=== PATIENT | male | born 1940 | race Caucasian/White ===

== ENCOUNTER 2018-11-25 16:48 | Inpatient (IN) ==
--- NOTE | 2018-11-25 17:29 | Diag Imaging Result Doc PS360 ---
EXAM: CT HEAD W/O CONTRAST 11/25/2018 HISTORY: DISORIENTATION TECHNIQUE: This exam was performed using automated exposure control, adjustment of mA or kV according to patient size, and/or use of iterative reconstruction technique. COMMENT: There is mild generalized cerebral atrophy. There is enlargement of the third and lateral ventricles which appears to be somewhat out of proportion to the degree of atrophy. Compared to the previous study of 03/05/2013 the lateral ventricles have increased in size. The atrium of the right lateral ventricle has increased from 25 to 31 mm and the transverse dimension of the anterior horns in aggregate has increased from 4.6 to 4.8 cm. The transverse dimension of the third ventricle has increased from under 13 to over 14 mm. There are some patchy periventricular white matter lucencies. No evidence of bleed or abnormal extra-axial fluid collection is present. The calvarium is intact. The visualized paranasal sinuses are clear. IMPRESSION: Mild chronic microvascular white matter changes. The possibility of normal pressure hydrocephalus cannot be excluded. Electronically signed by Presley Lakhani 11/25/2018 5:26 PM
--- NOTE | 2018-11-25 17:33 | PROVIDER DOCUMENTATION ---
HPI-Neurological Disorder - General Chief Complaint: Stroke-Like Symptoms Stated Complaint: DR LAIRD SENT FOR MRI Time Seen by Provider: 11/25/18 16:55 Allergies/Adverse Reactions: Patient Allergies Allergy/AdvReac Type Severity Reaction Status Date / Time morphine Allergy SHORTNESS Verified 12/01/14 10:22 OF BREATH Home Medications: Home Medication List Medication Instructions Recorded Confirmed Last Taken Type LISINOpril [Prinivil] 5 mg PO DAILY 06/06/14 12/01/14 12/01/14 08:00 History Omeprazole [Prilosec] 20 mg PO DAILY@0700 06/06/14 12/01/14 12/01/14 08:00 History Simvastatin [Zocor] 40 mg PO DAILY 06/06/14 12/01/14 11/30/14 20:00 History Tamsulosin [Flomax] 0.4 mg PO DAILY 06/06/14 12/01/14 12/01/14 08:00 History Clopidogrel Bisulfate [Plavix] 75 mg PO DAILY 10/10/14 12/01/14 12/01/14 08:00 History Lorazepam 1 mg PO HS 10/10/14 12/01/14 11/30/14 20:00 History Metoprolol Tartrate 25 mg PO DAILY 10/10/14 12/01/14 12/01/14 08:00 History Nitroglycerin [Nitrostat] 0.4 mg SL PRN PRN 10/10/14 12/01/14 12/01/14 08:00 History Potassium Chloride E.r. [Klor-Con] 10 meq PO DAILY 10/10/14 12/01/14 12/01/14 08:00 History Venlafaxine HCl [Effexor] 50 mg PO BID 10/10/14 12/01/14 12/01/14 08:00 History - History of Present Illness-Neuro Nature of Presenting Problem: Patient is a 78 yowm who complains of expressive aphasia x 1 week that worsened on Friday. He is present with his [id number] who states she alpa noticed the aphasia last Friday. Pt also c/o generalized weakness and intermittent dizziness "for a while". He told the triage nurse that he was having suicidal thoughts, but would not answer questions regarding SI when I asked him. He is a&ox4 and non-toxic in appearance. Review of Systems - Adult - REVIEW OF SYSTEMS - ADULT Constitutional: reports: no symptoms reported Eyes: reports: no symptoms reported Ears, Nose, Mouth & Throat: reports: no symptoms reported Cardiovascular: reports: no symptoms reported Respiratory: reports: no symptoms reported Gastrointestinal: reports: no symptoms reported Genitourinary: reports: no symptoms reported Musculoskeletal: reports: no symptoms reported Integumentary: reports: no symptoms reported Neurological: reports: see HPI, slurred speech (expressive aphasia). denies: numbness, paresthesia, syncope Psychiatric: reports: see HPI Endocrine: reports: no symptoms reported Hematologic/Lymphatic: reports: no symptoms reported Allergic/Immunologic: reports: no symptoms reported All Other Systems: Reviewed and Negative Past History - Adult - PAST MEDICAL HISTORY-ADULT Review of Records: reports: Nursing Assessment Review, Medications Reviewed, Social history reviewed & non-contributory. Major Childhood Illnesses: reports: denies history Cardiovascular: reports: CAD, HTN, hyperlipidemia Respiratory: reports: denies history Gastrointestinal: reports: GERD Obstetrical/Gynecological: reports: denies history Genitourinary: reports: kidney stones Musculoskeletal: reports: denies history Neurological: reports: denies history Endocrine/Immune: reports: denies history Other Conditions: reports: denies history - PRIOR SURGERIES/PROCEDURES Surgical/Procedure History: reports: cardiac stent, hernia repair, orthopedic (extremity) (shoulder) - FAMILY HISTORY Family History: reviewed, not pertinent - SOCIAL HISTORY Smoking: non-smoker Physical Exam- Neurological - Physical Exam-Neuro Initial Vital Signs Reviewed: Yes General Appearance: alert, no apparent distress. 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 negative: abnormal eye position, facial asymmetry, facial droop, facial paresthesias, facial weakness, gaze palsy Coordination/Gait: normal finger to nose Motor/Sensory: no pronator drift Neurologic: aphasia. negative: facial droop, focal weakness, motor weakness, sensory deficit Integumentary: normal color, warm/dry. negative: cyanosis, diaphoresis, jaundice, mottled, pallor - Glascow Coma Scale Best Eye Response: (4) open spontaneously Best Verbal Response: (5) oriented Best Motor Response: (6) obeys commands Progress - PLAN OF CARE/RESULTS Progress/Plan/Lab Results: Vital Signs - 8 hr 11/25/18 16:52 11/25/18 19:48 11/25/18 19:50 Temperature 98.0 F Pulse Rate 98 H 60 58 L Respiratory Rate 18 17 18 Blood Pressure 118/70 165/71 O2 Sat by Pulse Oximetry 96 97 Laboratory Results - last 24 hr 11/25/18 11/25/18 11/25/18 17:59 17:59 17:59 WBC 5.35 RBC 4.15 L Hgb 13.2 L Hct 39.4 L MCV 94.9 MCH 31.8 H MCHC 33.5 RDW Std Deviation 13.4 Plt Count 223 MPV 9.3 Immature Gran % (Auto) 0.0 Neut % (Auto) 56.8 Lymph % (Auto) 30.5 Taylor % (Auto) 9.0 Eos % (Auto) 2.8 Baso % (Auto) 0.9 H Immature Gran # (Auto) 0.00 Neut # (Auto) 3.04 Lymph # (Auto) 1.63 Taylor # (Auto) 0.48 Eos # (Auto) 0.15 Baso # (Auto) 0.05 PT 13.6 INR 1.03 PTT (Actin FS) 27.1 Sodium Potassium Chloride Carbon Dioxide Anion Gap BUN Creatinine Estimated GFR/1.73 m2 BUN/Creatinine Ratio Glucose Calculated Osmolality Calcium Magnesium Total Bilirubin AST ALT Alkaline Phosphatase Troponin T < 0.010 Total Protein Albumin Globulin Albumin/Globulin Ratio Urine Source 11/25/18 11/25/18 17:59 20:40 WBC RBC Hgb Hct MCV MCH MCHC RDW Std Deviation Plt Count MPV Immature Gran % (Auto) Neut % (Auto) Lymph % (Auto) Taylor % (Auto) Eos % (Auto) Baso % (Auto) Immature Gran # (Auto) Neut # (Auto) Lymph # (Auto) Taylor # (Auto) Eos # (Auto) Baso # (Auto) PT INR PTT (Actin FS) Sodium 141 Potassium 3.7 Chloride 105 Carbon Dioxide 23 L Anion Gap 13 BUN 12 Creatinine 1.4 H Estimated GFR/1.73 m2 49 BUN/Creatinine Ratio 9 Glucose 94 Calculated Osmolality 281 Calcium 8.8 Magnesium 1.7 Total Bilirubin 0.43 AST 24 ALT 13 Alkaline Phosphatase 128 H Troponin T Total Protein 6.1 L Albumin 3.8 Globulin 2.3 Albumin/Globulin Ratio 1.7 Urine Source CLEAN CATCH Orders Category Date Time Status Cardiac Monitoring DIRECTED Care 11/25/18 17:34 Active Nursing- Obtain EKG ONCE Care 11/25/18 17:34 Active CHEST-2 VIEWS [RAD] Stat Exams 11/25/18 17:[address] HEAD W/O CONTRAST [CT] Stat Exams 11/25/18 17:00 Completed CBC WITH DIFF [HEME] Stat Lab 11/25/18 17:59 Completed COMPREHENSIVE METABOLIC PANEL [CHEM] Stat Lab 11/25/18 17:59 Completed MAGNESIUM [CHEM] Stat Lab 11/25/18 17:59 Completed PROTIME WITH INR [COAG] Stat Lab 11/25/18 17:59 Completed PTT [COAG] Stat Lab 11/25/18 17:59 Completed TROPONIN T Stat Lab 11/25/18 17:59 Completed UA NIMS W/REFLEX CULT [URINALYSIS] Stat Lab 11/25/18 20:40 Results 0.9% Sodium Chloride Inj [Ns] 500 ml Med 11/25/18 17:34 Discontinued IV 999 mls/hr EKG [EKG] Stat Ther 11/25/18 17:34 Ordered Result Diagrams: 11/25/18 17:59 11/25/18 17:59 - REASSESSMENT Reassessment #1 Time Reassessed: 19:20 Status: unchanged (Admitting HPS paged. Pt in agreement with admission plan. No change in aphasia or mental status since previous exam.) Reassessment #2 Time Reassessed: 21:52 Status: other (Attempted to contact Dr. Ramsey who is unavailable at this time. Charge nurse states md is aware of admit.) - EKG 1 Time of EKG reading by physician:: 17:51 EKG Read and Signed by:: Lisa Arce EKG Interpretation (*Must complete 3 of following elements*): Abnormal Rate: 64 Rhythm: SR with 1st degree AV block QRS: normal ST Wave: normal Prior EKG Comparison: unchanged from prior - XRAY 1 XRAY Study: Chest ([facility] - [address], [address], [place] [address] [facility] - [facility] [place] [address] Department of Imaging Patient: MARGE MCDONALDADM Date: 11/25/18#: [id number] : 1940ADM Status: PRE ERAcct#: [id number] Age/Sex: 78/MRoom/Bed: Loc: ED Ordering Physician: Chris Day Family Physician: Nuris Laird MD Reason for Procedure: aphasia Signed EXAM: CHEST-2 VIEWS 11/25/2018 HISTORY: aphasia TECHNIQUE: Two views the chest COMMENT: There is a large hiatal hernia. This was also present on 10/29/2018. There is atelectasis or fibrosis in the medial lower lobes bilaterally which was also the case previously. Overall there has been no significant change considering differences in technique. IMPRESSION: Stable chest. Electronically signed by Presley Lakhani 11/25/2018 6:21 PM 11/25/181820 Interpreting Physician: Presley Lakhani MD Dictated Date/Time: 11/25/181819 cc: Chris Day; Nuris Laird MD) - CT/MRI 1 CT Study: Head ([facility] - [address], [address], [place] [address] [facility] - [facility] [place] [address] Department of Imaging Patient: MARGE MCDONALDADM Date: 11/25/18#: [id number] : 1940ADM Status: PRE ERAcct#: [id number] Age/Sex: 78/MRoom/Bed: Loc: ED Ordering Physician: Lisa Arce MD Family Physician: Nuris Laird MD Reason for Procedure: DISORIENTATION Signed EXAM: CT HEAD W/O CONTRAST 11/25/2018 HISTORY: DISORIENTATION TECHNIQUE: This exam was performed using automated exposure control, adjustment of mA or kV according to patient size, and/or use of iterative reconstruction technique. COMMENT: There is mild generalized cerebral atrophy. There is enlargement of the third and lateral ventricles which appears to be somewhat out of proportion to the degree of atrophy. Compared to the previous study of 03/05/2013 the lateral ventricles have increased in size. The atrium of the right lateral ventricle has increased from 25 to 31 mm and the transverse dimen niall of the anterior horns in aggregate has increased from 4.6 to 4.8 cm. The transverse dimension of the third ventricle has increased from under 13 to over 14 mm. There are some patchy periventricular white matter lucencies. No evidence of bleed or abnormal extra-axial fluid collection is present. The calvarium is intact. The visualized paranasal sinuses are clear. IMPRESSION: Mild chronic microvascular white matter changes. The possibility of normal pressure hydrocephalus cannot be excluded. Electronically signed by Presley Lakhani 11/25/2018 5:26 PM 11/25/18 1726 Interpreting Physician: Presley Lakhani MD Dictated Date/Time: 11/25/18 1723 cc: Lisa Arce MD; Nuris Laird MD) Departure - Departure Date of Disposition Decision: 11/25/18 Time of Disposition Decision: 19:32 DIAGNOSIS: Aphasia Disposition: ADMITTED INPATIENT 09 Certified Medical Emergency: Emergent Condition: Stable Referrals and Follow-Ups: Nuris Laird MD [Primary Care Provider] - - Critical Care Note This patient required my direct & personal management of CC.: No Attestation - Physician/ LULA Attestation Patient care was provided by Advanced Practice Provider:: Yes Advanced Practice Provider:: Chris Day Advanced Practice Provider documentation review:: The Mid-level provider documentation, treatment plan and medical decision making was reviewed by the physician who agrees with all treatment and medical decision making by the MLP. The physician spent face to face time with patient:: No Advanced Practice Provider documentation review:: Supervising physician onsite and consulted in the evaluation and care of this patient. The physician did not have a face to face encounter with the patient. - NIH Stroke Scale NIH Type: Initial Evaluation Level of Consciousness: 0-Alert LOC Questions (ask month and age): 0-Answers Both Correctly LOC Commands (ask to open & close eyes;make a fist, let go): 0-Obeys Both Correctly Best Gaze (horizontal eye movement): 0-Normal Visual (use finger movement, counting or visual threat): 0-No Visual Loss Facial Palsy (show teeth or raise eyebrows & close eyes tght: 0-Symmetrical Movement Motor Function-left arm: 0-Normal Motor Function-right arm: 0-Normal Motor Function-left le-Normal Motor Function-right le-Normal Limb Ataxia(ctxvgz-[id number]-mamswz, or heel to fischer): 0-No Ataxia Sensory(pin prick to face,arms,trunk,legs-compare side/side): 0-No Ataxia Best Language(name item/read sentence.Ex-Down to Earth): 2-Severe Aphasia Dysarthria(Pt read words or say words Ex.Mama,Tip-Top,Thanks: 1-Mild-Mod Slur ring Words Extinction and Inattention: 0-Normal Modified [place] Score Criteria: 2-slight disability Stroke tPA Guidelines - Inclusion Criteria for IV tPA 18 years old or older: Yes Ischemic stroke with measurable deficit: No Onset <3 hours ago *OR* 3-4.5 hours ago: Yes - Exclusion Criteria for IV tPA Evidence of intracranial hemorrhage on CT: No Presentation suggest SAH: No CT reveals defined area of hypodensity: No Evidence of AVM, neoplasm, aneurysm: No Seizure at stroke onset: No Active internal bleeding or acute trauma: No Platelet Count Less Than 100,000: No Heparin Within Last 48 HRS (PTT >Lab normal limits): No INR > 1.7 (warfarin use): No Use IIB/IIIA inhibitors within 24 hours: No Serious Head Trauma Within Last 3 Months: No Arterial Puncture Within Last 7 Days: No Lumbar Puncture Within Last 7 Days: No Repeated systolic Blood Pressure >185 or Diastolic >110: No - Additional Exclusion Criteria for IV tPA Currently on Coumadin: No Patient older than 80: No Prior stroke and diabetes: No Baseline NIHSS score > 25: No - Relative Contraindications to IV tPA CT reveals extensive area of infarct (>1/3 MCA territory): No Minor or rapidly improving stroke symptoms: No Major Surgery or Serious Trauma In Previous 14 Days: No AMI within 3 months: No Gastrointestinal or Urinary Tract hemorrhage in Past 21 Days: No Post - AMI pericarditis: No Blood Glucose Less Than 50 mg/dl or Greater Than 400 mg/dl: No - Consultation tPA risks/benefits explained to:: other (pt not a tpa candidate) Candidate for:: NOT A CANDIDATE Reason not a candidate:: time of onset of symptoms
[2018-11-25] MEDS ORDERED: NS 500 ML IV ONE (17:34)
[2018-11-25 18:19] LABS: BASO# 0.05 X1000 (0.0-0.2); BASO% 0.9 % (0.0-0.8); EOS# 0.15 X1000 (0.0-0.7); EOS% 2.8 % (0.0-10.0); HEMATOCRIT 39.4 % (42.0-52.0); HEMOGLOBIN 13.2 g/dL (14.0-18.0); LYMPH# 1.63 X1000 (1.2-3.4); LYMPH% 30.5 % (20.5-51.1); MCH 31.8 PG (27-31); MCHC 33.5 g/dL (33-37); MCV 94.9 FL (81-99); MONO# 0.48 X1000 (0.11-0.59); MPV 9.3 FL (7.4-10.4); NEUT# 3.04 X1000 (1.4-6.5); NEUT% 56.8 % (42.2-75.2); PLT 223 X1000 (130-400); RBC 4.15 XMIL (4.7-6.1); RDW 13.4 % (11.5-14.5); WBC 5.35 X1000 (4.8-10.8)
--- NOTE | 2018-11-25 18:23 | Diag Imaging Result Doc PS360 ---
EXAM: CHEST-2 VIEWS 11/25/2018 HISTORY: aphasia TECHNIQUE: Two views the chest COMMENT: There is a large hiatal hernia. This was also present on 10/29/2018. There is atelectasis or fibrosis in the medial lower lobes bilaterally which was also the case previously. Overall there has been no significant change considering differences in technique. IMPRESSION: Stable chest. Electronically signed by Presley Lakhani 11/25/2018 6:21 PM
[2018-11-25 18:24] LABS: INR 1.03; PROTIME 13.6 Seconds (11.0-16.0); PTT 27.1 Seconds (22.3-41.8)
[2018-11-25 18:52] LABS: ALB/GLOB RATIO 1.7; ALBUMIN 3.8 g/dL (3.5-5.0); CALCIUM 8.8 mg/dL (8.8-10.2); CREATININE 1.4 mg/dL (0.7-1.2); MAGNESIUM 1.7 mg/dL (1.5-2.7); POTASSIUM 3.7 mmol/L (3.5-5.1); TOTAL BILIRUBIN 0.43 mg/dL (0.20-1.00); TOTAL PROTEIN 6.1 g/dL (6.3-8.3)
--- NOTE | 2018-11-25 19:01 | ED EKG INTERP ---
This chart was entered by Rhianna Singh Scribe, acting as scribe for Lisa Arce MD. EKG Interpretation - EKG Time of EKG reading by physician:: 17:49 EKG Read and Signed by:: Lisa Arce EKG Interpretation (*Must complete 3 of following elements*): Abnormal Rate: 64 Rhythm: sinus with 1st degree av block [place]: normal ID Interval: normal ST Wave: normal Attestation - Physician/ LULA Attestation Patient care was provided by Advanced Practice Provider:: Yes Advanced Practice Provider documentation review:: The Mid-level provider documentation, treatment plan and medical decision making was reviewed by the physician who agrees with all treatment and medical decision making by the MLP. The physician spent face to face time with patient:: No Advanced Practice Provider documentation review:: Supervising physician onsite and consulted in the evaluation and care of this patient. The physician did not have a face to face encounter with the patient. This chart was documented by the indicated scribe, (Rhianna Singh Scribe) and accurately reflects the services I performed and decisions made by me, Lisa Arce MD, as attested by the provider's signature.
[2018-11-25 22:36] LABS: URINE SOURCE CLEAN CATCH
[2018-11-25 23:19] LABS: BILIRUBIN URINE NEGATIVE (NEGATIVE); BLOOD URINE NEGATIVE (NEGATIVE); COLOR YELLOW; GLUCOSE URINE NEGATIVE (NEGATIVE); KETONE URINE 10 mg/dL (NEGATIVE); LEUKOCYTES URINE NEGATIVE (NEGATIVE); NITRITE URINE NEGATIVE (NEGATIVE); PH URINE 5.5; PROTEIN URINE 50 mg/dL (NEGATIVE); SP GRAVITY URINE 1.029; TURBIDITY URINE HAZY (CLEAR); UROBILINOGEN URINE NORMAL (NORMAL)
[2018-11-25 23:51] LABS: UR EPITHELIAL CELLS <10 /HPF (<10); URINE BACTERIA NEGATIVE /HPF; URINE CASTS NONE SEEN; URINE CRYSTALS CA CARBONATE PRESENT; URINE RBC <10 /HPF (<10); URINE SMALL ROUND CELLS NONE SEEN; URINE WBC <10 /HPF (<10); URINE YEAST NONE SEEN
--- NOTE | 2018-11-26 00:01 | EKG Report ---
Test Performed on : 11/25/2018 5:49:36 PM Test Reason : aphasia Blood Pressure : / mmHG Vent. Rate : 064 BPM Atrial Rate : 064 BPM P-R Int : 258 ms QRS Dur : 086 ms QT Int : 424 ms P-R-T Axes : 042 045 056 degrees QTc Int : 437 ms Sinus rhythm. with 1st degree AV block. Otherwise normal ECG When compared with ECG of 01-DEC-2014 10:08, Non-specific change in ST segment in Inferior leads Nonspecific T wave abnormality no longer evident in Inferior leads Unconfirmed Result
[2018-11-26] MEDS ORDERED: NS 1,000 ML IV SCH (03:00)
[2018-11-26] MEDS ORDERED: TYLENOL PO PRN (03:19)
[2018-11-26] MEDS ORDERED: ASPIRIN PO ONE (03:19)
[2018-11-26] MEDS ORDERED: ZOFRAN IV PRN (03:19)
[2018-11-26 07:02] LABS: BASO# 0.04 X1000 (0.0-0.2); BASO% 0.7 % (0.0-0.8); EOS% 3.7 % (0.0-10.0); IMM GRAN# 0.02 X1000 (0.0-0.04); IMM GRAN% 0.4 % (0.0-0.5); LYMPH# 1.67 X1000 (1.2-3.4); LYMPH% 30.6 % (20.5-51.1); MCHC 32.4 g/dL (33-37); MCV 95.6 FL (81-99); MONO# 0.52 X1000 (0.11-0.59); MONO% 9.5 % (1.7-9.3); MPV 9.3 FL (7.4-10.4); NEUT# 3.01 X1000 (1.4-6.5); NEUT% 55.1 % (42.2-75.2); PLT 197 X1000 (130-400); RBC 3.87 XMIL (4.7-6.1); RDW 13.5 % (11.5-14.5); WBC 5.46 X1000 (4.8-10.8)
[2018-11-26 07:22] LABS: AGAP 13; ALB/GLOB RATIO 1.4; ALBUMIN 3.4 g/dL (3.5-5.0); ALKALINE PHOSPHATASE 112 U/L (32-122); BUN 11 mg/dL (8-22); CALCIUM 8.8 mg/dL (8.8-10.2); CHLORIDE 110 mmol/L (98-107); COSMO 288; CREATININE 1.1 mg/dL (0.7-1.2); ESTIMATED GFR > 60; GLUCOSE 89 mg/dL (70-104); GOT 22 U/L (10-34); GPT 12 U/L (10-44); MAGNESIUM 1.8 mg/dL (1.5-2.7); POTASSIUM 3.5 mmol/L (3.5-5.1); SODIUM 145 mmol/L (136-145); TCO2 22 mmol/L (25-35); TOTAL BILIRUBIN 0.54 mg/dL (0.20-1.00); TOTAL PROTEIN 5.8 g/dL (6.3-8.3)
--- NOTE | 2018-11-26 15:01 | Diag Imaging Result Doc PS360 ---
MRI BRAIN W/O CONTRAST - 11/26/2018 INDICATION: Aphasia,Possible CVA COMPARISON: Head CT 11/25/2018, brain MRI 03/19/2013 FINDINGS: There is no area of restricted diffusion. There is ventriculomegaly that is stable from prior. No intracranial mass or hemorrhage. There is grossly stable periventricular cerebral white matter hyperintensity. This may represent edema or iliopsoas from chronic ischemia. IMPRESSION: Stable dilated ventricular system. Normal pressure hydrocephalus is suggested. No acute process. Electronically signed by Rocco Moody 11/26/2018 2:59 PM
--- NOTE | 2018-11-26 19:23 | CONSULTATION ---
DATE OF CONSULTATION: 11/26/2018 HISTORY OF PRESENT ILLNESS: Mr. Salinas is 78 years old and there is report of recent trouble with communication. History from the patient is that he has been a little bit forgetful. He does not have any specific complaints. History from attentive family at the bedside, and from review of the hospital chart, is that he seemed to have trouble communicating over the last week. Family has noticed some forgetfulness for at least a year, gradually more prominent. He seemed significantly worse after his 6 months ago. There is a family member at home with him now supervising medications. There is not history of serious head injury, previous stroke, seizure, other neurologic event. He does not use ethanol. Family member at the bedside spoke with him frequently and noticed over the last week or so that he just did not seem to be himself. He seemed less spontaneous with speech, less joking, sometimes trouble finding words more than usual. There was not focal neurologic deficit, apparent gait difficulty, falling, facial asymmetry, trouble chewing or swallowing. Speech was not slurred. He seemed alert, not excessively sleepy. Mr. Salinas had not complained to family of headache or other specific problem. There is report that he may have taken a medication briefly to try to help with memory within the last year. This would have been prescribed by his primary physician, Dr. Grossman, according to family. Family does not know the name of the medicine or exactly what kind of reaction he had, but he seemed to have a reaction and the medicine was stopped. They are not aware of any other trial with medicine to help memory. There is reported past history of ischemic heart disease, coronary stenting, peripheral vascular disease, hypertension, dyslipidemia. By report, home medication list includes lorazepam supervised by family. Mr. Salinas is not able to tell me about his medicines. We did not have urine drug screen this admission. The history provided does not sound like a benzodiazepine withdrawal or intoxication syndrome. He has been afebrile here. Systolic blood pressures have ranged 110s to 160s. Heart rate has ranged 50s to 90s. Imaging this admission includes initial noncontrast CT showing ventriculomegaly. The CT radiology report makes comment that the ventriculomegaly is a little bit more prominent now than what was seen on a 03/05/2013 scan. I do not have the images or the scan report from 2013. Other imaging reports available include brain MRI done without contrast, 03/19/2013, reported to show diffuse atrophy and ventricular dilatation with left posterior parietal encephalomalacia. No images from prior imaging studies are available on the computer for my review now. On exam, Mr. Salinas is awake, alert, attentive, cheerful, appropriate. He seemed to make good effort with communication and with bedside cognitive testing. He scored 18 of 30 on usual testing. He registered 2 of 3 items and could recall 1 of 3 items at 5 minutes. He interpreted a simile, but not a metaphor. He provided only 2 letters correctly attempting to spell "world" backward. He could not name the President. With some hints from family, he was able to discuss recent news minimally, but he could not provide details. He provided the correct month, but not the day of the week, the day of the month, or the year. He provided the correct name of the city, county, and state. He could describe the governor, but could not name her. He did well with bedside naming of objects and parts of objects, but could not provide proper nouns as well as common nouns. He did well with bedside testing of repeating, comprehension, fluency, right/left distinction, digit distinction. Visual kaufman are full, tested grossly by confrontational finger counting. Extraocular movements are full. Facial motility is a little bit diminished bilaterally, but symmetric. Facial sensation is intact. Gag is intact. Tongue is midline. Hearing is fair. Shoulder shrug is equal. Strength is normal in the arms and legs. He did well on [id number] testing bilaterally. He reports good pinprick appreciation over the limbs. Proprioception is a little bit diminished at the great toe MTP joint bilaterally. I did not test his gait. IMPRESSION: 1. History sounds like cognitive impairment, which has been progressive over at least a year. This is likely major neurocognitive disorder/dementia. He has risk factors for vascular dementia and Alzheimer disease will always be statistically most likely. 2. He does have trouble with proper nouns more than common nouns. This raises possibility of a primary progressive aphasia syndrome or other non-Alzheimer's explanation for dementia. 3. He has minimal loss of proprioception in the feet. 4. The imaging finding of ventriculomegaly is noted. I suspect this is long- standing and not associated with "normal pressure hydrocephalus". We might repeat imaging later, but I do not think we need to pursue that now. RECOMMENDATION: If we can find out what medication he previously tried, and what type of intolerance occurred, we might retry or avoid that. If that was a cholinesterase inhibitor, we might try a different cholinesterase inhibitor, or try the same drug again at a lower beginning dose, unless there was true allergic reaction. If he has not tried memantine, that can be considered. None of this management is urgent. If he cannot tolerate cholinesterase inhibitor, or if he takes a cholinesterase inhibitor at reasonable dose for a while without apparent benefit, we might consider brain PET to see if there is evidence of degenerative central nervous system problem other than Alzheimer disease causing dementia I told the patient and family that my suggestion is that he not drive his new truck, that he not drive any other vehicle, and that he continue allowing close supervision to his medications. Thanks for asking Neurology to see Mr. Salinas. cc: MD YEISON Kaba III
--- NOTE | 2018-11-26 22:17 | PROGRESS NOTE ---
DATE: 11/26/2018 INTERVAL HISTORY: No acute events overnight. He underwent CT scan and MRI of the brain which did have ventriculomegaly without any acute infarct. SUBJECTIVE: He is feeling fine. He is able to converse well, but whenever I remind him about aphasia, he does have some speech difficulty where he is not able to come up with words. He denies suicidal ideations. OBJECTIVE: Vital signs: Temperature 98.1 degrees, pulse 58, respiratory rate 16, blood pressure 120/ 60, saturating 98% on room air. General: Does not appear in acute distress. Oral cavity is moist. Lungs: Air entry bilaterally equal. No wheeze or rhonchi. Cardiovascular: S1, S2 normal. No murmur or gallop. Abdomen: Soft, nontender. Extremities: No lower extremity edema. Psychiatric: He denies any suicidal ideation. LABORATORY DATA: Essentially unremarkable with normal kidney function. His acute kidney injury has resolved. ASSESSMENT AND PLAN: 1. Expressive aphasia. This could be in the setting of baseline cognitive dysfunction or dementia or he may have a neuro related degenerative disorder. Neurology on board. No urgent plan. 2. History of coronary artery disease. I will continue him on his home aspirin and Plavix. 3. Acute kidney injury on presentation has resolved. 4. Others. Continue home trazodone for insomnia, lisinopril for hypertension, omeprazole for chronic gastroesophageal reflux disease, tamsulosin for benign prostatic hypertrophy. DISPOSITION: If patient continues to do well, my plan is to discharge him home tomorrow. Plan of care discussed with him. His questions have been answered. cc: Dusty Rodriguez MD MTDD
--- NOTE | 2018-11-26 23:34 | ECHO REPORT ---
ORDER DATE: 11/26/2018 MEASUREMENTS: Septal thickness 0.9, left ventricular internal diameter in diastole 5.3, posterior wall thickness 0.9, left ventricular internal diameter in systole 3.1, left atrium 3.5, aortic root 3.1. SUMMARY: 1. Fair quality study. 2. Aortic valve is without evidence of structural abnormality and appears to open adequately on 2- dimensional images. Peak gradient across the aortic valve is 10-15 mmHg. Mitral, tricuspid, and pulmonic valves are without evidence of structural abnormality, with mild mitral regurgitation and mild tricuspid regurgitation. The estimated systolic PA pressure by Doppler is 45-50 mmHg, suggesting mild pulmonary hypertension. Aortic root is normal in size. 3. Normal left ventricular dimension is demonstrated. Estimated left ventricular ejection fraction appears to be at least 70%. No regional wall motion abnormalities are evident. Left atrium, right atrium, right ventricle are normal in size, with grossly preserved right ventricular systolic function. 4. No pericardial effusion. 5. Appearance of inferior vena cava suggests normal central venous pressure. CONCLUSIONS: 1. Mild mitral regurgitation. 2. Mild tricuspid regurgitation with mild pulmonary hypertension by Doppler. 3. Estimated left ejection fraction at least 70%, without regional wall motion abnormality evident. cc: Marcelo Gray MD
--- NOTE | 2018-11-27 06:03 | HISTORY AND PHYSICAL ---
PRIMARY CARE PROVIDER: Dr. Grossman. DATE AND TIME: 11/26/2018 at 0130. CHIEF COMPLAINT: Stroke-like symptoms. HISTORY OF PRESENT ILLNESS: Mr. Salinas is a 78-year-old male who was brought to the ER on 11/25/2018 at 1648 hours with complaints of stroke-like symptoms, which included some atypical speech, some generalized weakness and dizziness. There is also mention in the ER note that the patient reported to the triage nurse that he was having some suicidal thoughts. Upon speaking with the patient, he did report that for the past week now that he has had some difficulty with speech, it sounds like it is likely expressive aphasia. He states that sometimes he knows what he wants to say but cannot get his words out. He states this has been kind of gradually getting worse over the last week or so. He also has had some worsening generalized weakness and dizziness at times. He denies any headache. He has reported some floaters in his visual field, though he states this is not of new onset either. He denies any chest pain, shortness of breath, abdominal pain, nausea, vomiting, or diarrhea. He denies any dysuria or urinary frequency. He denies any pain, numbness, tingling, or swelling in extremities. He also denies his weakness being worse on one side compared to the other. He denies any difficulty swallowing or any problems getting choked when he eats. He denies any fever, body aches, or chills. The patient denies any previous history of a stroke. He states that he does have coronary artery disease and has had cardiac stents placed, and this is why he takes Plavix and aspirin. I did speak with the patient about his reports of suicidal thoughts upon arrival to the ER. He states that his did pass away back in March, and since that time, sometimes he gets depressed. He does live at home by himself, it is just him and his dog. Though he did state that over the past few weeks he has had days where he did not feel like getting up, getting out of bed, or getting dressed. He said that a couple of days ago he briefly did have a thought of suicide, though he did not have a plan on how he was going to commit suicide. Though, he denies any suicidal thoughts at present. He denies any self-harm thoughts at present. The patient states that he is not taking anything for depression now or in the past, he does take something for anxiety that his physician prescribes him. At this time, the patient is not able to completely remember all of his medications. We are waiting for those to be updated and verified. The patient does use [facility] in [place]. We can try to call them in the morning. Upon evaluation in the ER, he does have some expressive aphasia noted. This did seem to get worse when he got up a little upset talking about the recent passing of his . Though other than this, he did not have any other focal neurological deficits noted. Laboratory studies were performed, were pretty unremarkable, except for the patient does have an acute kidney injury with a creatinine of 1.4 and GFR 49. The urinalysis did not show any signs of infection. Chest x-ray did not show any acute abnormality, this is per Radiology. CT of the head without contrast showed some mild chronic microvascular white matter changes. There was mention of possibility of normal- pressure hydrocephalus that could not be excluded. The EKG showed a sinus rhythm with a first- degree AV block at a rate of 64 with a QTc of 437. Though this first-degree heart block was present on a previous EKG from September 2014. At this time, the patient will be admitted and treated for further treatment and evaluation of aphasia and possible CVA. REVIEW OF SYSTEMS: A 14-point review of systems was conducted with the patient and all were negative, except for pertinent positives mentioned in HPI. PAST MEDICAL HISTORY: 1. Coronary artery disease status post stent placement x5. 2. Gastroesophageal reflux disease. 3. Hyperlipidemia. 4. Hypertension. 5. History of kidney stones. 6. History of skin cancer. 7. BPH. 8. Peripheral vascular disease. PAST SURGICAL HISTORY: 1. Cardiac stent placement x5. 2. Hernia repair. 3. Right shoulder rotator cuff repair. SOCIAL HISTORY: The patient reports that he is a former smoker, he quit smoking at the age of 17. He reports no alcohol or illicit drug use. He was for approximately 55 years, though his recently in March. He lives alone at home with just him and his dog. FAMILY HISTORY: Positive for his brother having a history of coronary artery disease and had to have CABG. ALLERGIES: Patient has allergies to morphine. HOME MEDICATIONS: We are awaiting the patient's home medication list to be updated and verified at this time. We will address his home medication list and continue appropriate medicines. DIAGNOSTIC DATA: White blood cell count is 5350, hemoglobin 13.2, hematocrit 39.4, platelet count is 223,000. PT 13.6, INR 1.03, PTT is 27.1. Sodium 141, potassium 3.7, chloride 105, serum bicarb is 23, BUN 12, creatinine 1.4, with a GFR of 49. Glucose 94, calcium 8.8, magnesium 1.7. Liver function tests are within normal limits, except for alkaline phosphatase is slightly elevated at 128. Troponin less than 0.01. Urinalysis was obtained via clean catch, was positive for protein and ketones, it was negative for glucose, blood, nitrites, leukocytes, white blood cells, or bacteria. EKG showed sinus rhythm with a 1st degree AV block at a rate of 64 with a QTc of 437. Chest x-ray showed a large hiatal hernia, which was previously present in October 2018. There is some atelectasis or fibrosis in the medial lower lobes bilaterally, which was also present previously. Though other than this, there were no other significant changes noted. This was a stable chest x-ray, per Radiology. CT of the head without contrast showed mild chronic microvascular white matter changes. There was a possibility of normal-pressure hydrocephalus that could not be excluded. Though, there was no evidence of blood or abnormal extra-axial fluid collection present, as per Radiology. PHYSICAL EXAMINATION: VITAL SIGNS: Temperature 98 degrees, heart rate 67, respirations 18, blood pressure 146/61, oxygen saturation is 99% on room air. GENERAL: Mr. Salinas is a very pleasant 78-year-old male. He was resting with eyes closed upon my arrival to the room, but is easily arousable with verbal calling of his name. Once awake he was alert and oriented to person, place, time, and situation. HEENT: Head is atraumatic, normocephalic. Pupils are equal, round, reactive to light, were 3 mm bilaterally and brisk. EOMs were intact. Oral mucosa is moist. Oropharynx is clear. There is no facial droop noted. NECK: Supple. Trachea midline. There are no carotid bruit noted on auscultation bilaterally. CARDIOVASCULAR: The patient has S1, S2 present. No murmurs, gallops, rubs appreciated. Regular rate and rhythm. PULMONARY: The patient has symmetrical chest expansion bilaterally. Lungs are clear to auscultation in bilateral full kaufman. ABDOMEN: Soft, nontender, nondistended. Bowel sounds are present in all 4 quadrants, were normoactive. EXTREMITIES: No cyanosis or edema noted. Pulse, motor, and sensory were intact in all extremities. Pedal and radial pulses are 2+ bilaterally. INTEGUMENTARY: The patient's skin is pink, warm, and dry. NEUROLOGICAL: Patient is alert and oriented x 4. He has equal hand strength and muscle strength bilaterally. He has no arm drift noted. EOMs were intact. He is denying any numbness/ tingling in extremities, or weakness that is worse on 1 side in comparison to the other. At this time, other than his occasional difficulty with what appears to be expressive aphasia, there are no other focal neurological deficits noted. ASSESSMENT AND PLAN: 1. Possible cerebrovascular accident. The patient has been having reported expressive aphasia and worsening generalized weakness and dizziness at times. For further evaluation of this we will order an MRI of the brain without contrast in the morning as well as an echocardiogram and carotid ultrasounds. We have ordered from him to have a lipid profile drawn on the morning of 11/27/2018, after being NPO. We will go ahead and place the patient on aspirin 81 mg p.o. daily. We are awaiting for his home medication list to be updated and verified. We have placed a consult with Dr. Zepeda with Neurology, and we will await his evaluation and further recommendations for management. 2. History of coronary artery disease status post cardiac stent placement x5. We will continue to aspirin. 3. History of hypertension. The patient's blood pressure is within normal limits at this time. We are waiting for his home medications to be verified. Once done so, we can continue his regularly prescribed antihypertensive medications. 4. Hyperlipidemia. We are awaiting for his cholesterol medicine to be verified also. We are also awaiting lipid profile and will continue to follow. 5. Deep vein thrombosis prophylaxis will be provided with sequential compression devises. 6. Possible depression. The patient did recently lose his in March. Since that time, he states at times he has been sad. Over the last week, he said at times he felt like he did not want to get out of bed and get dressed. He did state that a couple of days ago he had a brief thought of suicide. He states he did not have a suicide plan. He denies any suicidal thoughts at this time. He does report he takes a medication for anxiety. He could possibly benefit from antidepressant. Though, at this time, I am unsure if he already takes something for depression. We will await his home medication to be reconciled. We will continue to follow closely. 7. Acute kidney injury. He has a creatinine of 1.4. He did receive a normal saline bolus in the ER. We will continue giving gentle IV hydration at 85 mL/h. We will reevaluate this in the morning. The patient has been placed medical floor with telemetry. He will have vital signs q.4 hours. We will do neurological checks q.4 hours as well. He will be on a heart healthy diet. We will repeat a CBC and CMP later on this morning. Further orders and recommendations pending hospital course, diagnostic studies, and physician evaluation. Dictated by DAVION Olivarez for Michael Ramsey MD I interviewed and examined this patient with the PHOTOGRAPHY PROFESSOR and discussed the treatment plan. This document accurately reflects the history, exam and treatment. cc: Michael Ramsey MD MTDMonica
[2018-11-27] MEDS ORDERED: PRILOSEC PO SCH (07:00)
[2018-11-27] MEDS ORDERED: ASPIRIN PO SCH (09:00)
[2018-11-27] MEDS ORDERED: PLAVIX PO SCH (09:00)
[2018-11-27] MEDS ORDERED: FLOMAX PO SCH (09:00)
[2018-11-27] MEDS ORDERED: SINGULAIR PO SCH (09:00)
[2018-11-27] MEDS ORDERED: KLOR-CON PO SCH (09:00)
[2018-11-27] MEDS ORDERED: EFFEXOR PO SCH (09:00)
[2018-11-27] MEDS ORDERED: PRINIVIL PO SCH (09:00)
--- NOTE | 2018-11-27 15:12 | Carotid Study ---
DATE: 11/26/2018 PROCEDURE: Carotid ultrasound. DATE OF STUDY: 11/26/2018. REQUESTING PROVIDER: Dat. MONOGRAM AND LETTER PASTER: Jonathan. INDICATIONS: 1. Possible CVA. 2. Aphasia. EQUIPMENT: [id number] E 9 ultrasound system with a 9 L-D transducer. FINDINGS: Complete diagram of ultrasound images can be seen in patient's medical record. The peak systolic velocity noted in the right side in the distal internal carotid artery is noted to be 89 and the left is noted to be in the bulb of 112. Calculated internal common ratio on the right 0.81, left 0.69. Calculated stenosis on the right 0 to 39 percent, left 40 to 59 percent. There is mild to moderate plaque noted in the left proximal internal carotid artery into the bulb. Again, this is producing a moderate stenosis. There is atherosclerosis on the right side, but not to the same degree. Both vertebral arteries were antegrade in flow. INTERPRETATION: Moderate stenosis on the left side of 40 to 59 percent, on the right side is normal to mild at 0 to 39 percent. I would recommend continue monitoring and CT angiography if clinically indicated. cc: Ozzie Grossman MD
[2018-11-27 17:19] VITALS: BP 100/53
[2018-11-27] MEDS ORDERED: LIPITOR PO SCH (21:00)
[2018-11-27] MEDS ORDERED: DESYREL PO SCH (21:00)
--- NOTE | 2018-12-01 15:15 | DISCHARGE SUMMARY ---
ADMISSION DATE: 11/26/2018 DISCHARGE DATE: 11/27/2018 DISCHARGE DISPOSITION: Home. DISCHARGE CONDITION: Hemodynamically stable. He denies any suicidal ideation. His aphasia is better. DISCHARGE DIAGNOSES: 1. Expressive aphasia, likely in the setting of baseline cognitive dysfunction. 2. History of coronary artery disease. 3. Acute kidney injury. OTHER DIAGNOSES: 1. Insomnia. 2. Essential hypertension. 3. Chronic gastroesophageal reflux disease. 4. Benign prostatic hypertrophy. CONSULTATIONS DURING HOSPITAL ADMISSION: Dr. Zepeda. DISCHARGE MEDICATIONS: Trazodone 50 mg at nighttime, atorvastatin 80 mg at nighttime, donepezil 10 mg daily, venlafaxine 50 mg b.i.d., tamsulosin 0.4 mg daily, memantine 10 mg daily, omeprazole 20 mg daily, clopidogrel 75 mg daily, potassium 10 mEq daily, lisinopril 5 mg daily, montelukast 10 mg daily. PHYSICAL EXAMINATION: Vital Signs: At the time of discharge, temperature 98.7 degrees, pulse 62, respiratory rate 16, blood pressure 100/50, saturating 97% on room air. General: Does not appear in acute distress. HEENT: Oral cavity was moist. Lungs: Air entry bilaterally equal. No wheeze, rhonchi, crackle. Heart: S1, S2 normal. No murmur or gallop. Abdomen: Soft, nontender. Extremities: No lower extremity edema. Neurologic: He was alert and oriented x3. Examination was nonfocal. He was able to walk by himself. He did not have any suicidal ideation. SIGNIFICANT LABORATORY DATA DURING HOSPITAL ADMISSION AND DISCHARGE: Hemoglobin 12, WBC 5.4, platelets 197,000. Coagulation: INR of 1.03, PTT of 27. Potassium 3.7, BUN 11, creatinine 1.1. Cholesterol had LDL of 102. Urinalysis was unremarkable. MICROBIOLOGY: No microbiology during hospital admission. IMAGING: Head CT on admission had mild chronic microvascular white matter changes. Chest x-ray was unremarkable. Carotid Doppler study had moderate stenosis of the left side of 40% to 60%, and the right side had 0% to 39%, and continued monitoring was recommended. Brain MRI had stable dilated ventricular system, though normal-pressure hydrocephalus was suggested based on brain MRI. Neurology did not think it was normal-pressure hydrocephalus. Echocardiogram had ejection fraction of 70% without regional wall motion abnormality, mild tricuspid regurgitation with mild pulmonary hypertension, mild mitral regurgitation. EKG on admission had sinus rhythm with first- degree AV block, otherwise normal EKG. HOSPITAL COURSE SUMMARY: Mr. Salinas is a 78-year-old man who had presented to the hospital with stroke-like symptoms, which included atypical speech, generalized weakness and dizziness, and he also mentioned to the ER triage nurse that he was having some suicidal thoughts. However, he did not know the mechanism by which he would commit suicide. He was admitted inside the hospital, and had one-to-one suicide precautions, and brain imaging was performed and Neurology was consulted. After extensive brain imaging, no CVA was found, and the patient was not suicidal. He had some baseline cognitive impairment, for which his regular doctor has likely started him on memantine. Neurology concluded that his expressive aphasia, which was intermittent, was likely in the setting of his baseline cognitive impairment rather than a CVA. He was advised to follow up with Neurology outpatient. At the time of discharge, his diagnosis was in detail explained to him as well as his family members. All of their questions were answered. TIME SPENT: More than 30 minutes were spent in preparing this discharge summary. cc: Dusty Rodriguez MD
== END 2018-11-27 19:14 | disposition home or self-care (01) | DRG 92 ==
LOC: ED 16:48 → SUATTDRO 11-26 02:53 → 4N 11-26 02:53
PROVIDERS: ATTEND Internal Medicine

== ENCOUNTER 2019-01-22 13:58 | Inpatient (IN) ==
--- NOTE | 2019-01-22 14:52 | PROVIDER DOCUMENTATION ---
HPI-Neurological Disorder - General Chief Complaint: Altered Mental Status Stated Complaint: DEMENTIA Time Seen by Provider: 01/22/19 14:06 Source: patient, family Allergies/Adverse Reactions: Patient Allergies Allergy/AdvReac Type Severity Reaction Status Date / Time morphine Allergy SHORTNESS Verified 01/22/19 23:50 OF BREATH Home Medications: Home Medication List Medication Instructions Recorded Confirmed Last Taken Type Clopidogrel Bisulfate [Plavix] 75 mg PO DAILY 10/10/14 01/22/19 01/22/19 History ATORVAstatin [Lipitor] 80 mg PO QHS 11/26/18 01/22/19 1 Day Ago History ~01/21/19 Memantine [Namenda] 10 mg PO BID 11/26/18 01/22/19 01/22/19 History Montelukast Sodium [Singulair] 10 mg PO DAILY 11/26/18 01/22/19 01/22/19 History Omeprazole 20 mg PO DAILY 11/26/18 01/22/19 01/22/19 History Potassium Chloride 10 meq PO DAILY 11/26/18 01/22/19 01/22/19 History Trazodone [Desyrel] 50 mg PO QHS 11/26/18 01/22/19 1 Day Ago History ~01/21/19 Venlafaxine [Effexor] 50 mg PO BID 11/26/18 01/22/19 01/22/19 History Aspirin 81 mg PO DAILY 01/22/19 01/22/19 1 Day Ago History ~01/21/19 Donepezil [Aricept] 10 mg PO QHS 01/22/19 01/22/19 Unknown History Ibuprofen [Advil] 200 mg PO QAM 01/22/19 01/22/19 01/22/19 History Lisinopril 5 mg PO DAILY 01/22/19 01/22/19 Unknown History Multivitamins/Minerals [Centrum 1 ea PO DAILY 01/22/19 01/22/19 01/22/19 History Silver] Tamsulosin [Flomax] 0.4 mg PO DAILY 01/22/19 01/22/19 Unknown History - History of Present Illness-Neuro Nature of Presenting Problem: Patient with a h/o Dementia, CAD w/stent placement, HLD here today with relatives who are concerned about his worsening sxs. patient states that he is a cting crazy but seem not clarify this statement. Relatives at bed side reveals that he has been living alone since passed but has family members around him. They said he has been taken off aricept and lorazepam because of dizziness while continuing namenda but relatives states that he has been going downhill since taken off medication and now having visual hallucinations and getting angry a lot. He denies any other symptom . Headache Location: reports: other (altered mental status) Onset/Duration: reports: other (several weeks, getting worse) Context: reports: none Character of Altered Mental Status: reports: N/A Any recent trauma/injury?: reports: none New weakness or altered sensation location:: reports: none Cognitive Baseline: alert, oriented x3 (to place and person but not to time) Associated Symptoms: reports: denies symptoms Similar Symptoms Previously?: Yes Recently seen or treated by another doctor?: Yes Review of Systems - Adult - REVIEW OF SYSTEMS - ADULT ROS:: unobtainable per condition Constitutional: reports: no symptoms reported Eyes: reports: no symptoms reported Ears, Nose, Mouth & Throat: reports: no symptoms reported Cardiovascular: reports: no symptoms reported Respiratory: reports: no symptoms reported Gastrointestinal: reports: no symptoms reported Genitourinary: reports: no symptoms reported Musculoskeletal: reports: no symptoms reported Integumentary: reports: no symptoms reported Neurological: reports: no symptoms reported Psychiatric: reports: see HPI Endocrine: reports: no symptoms reported Hematologic/Lymphatic: reports: no symptoms reported Allergic/Immunologic: reports: no symptoms reported Past History - Adult - PAST MEDICAL HISTORY-ADULT Review of Records: reports: Nursing Assessment Review, Medications Reviewed, Social history reviewed & non-contributory. Major Childhood Illnesses: reports: denies history Cardiovascular: reports: CAD, HTN, hyperlipidemia Respiratory: reports: denies history Gastrointestinal: reports: GERD Obstetrical/Gynecological: reports: denies history Genitourinary: reports: kidney stones Musculoskeletal: reports: denies history Neurological: reports: denies history Endocrine/Immune: reports: denies history Other Conditions: reports: denies history - PRIOR SURGERIES/PROCEDURES Surgical/Procedure History: reports: cardiac stent, hernia repair, orthopedic (extremity) (shoulder) - FAMILY HISTORY Family History: reviewed, not pertinent - SOCIAL HISTORY Smoking: cigarettes (former smoker) Substance Use: none/never Alcohol Use Frequency: never Physical Exam- Neurological - Physical Exam-Neuro General Appearance: appears well, alert, no apparent distress Eye Exam: bilateral eye: PERRL, EOMI HENMT: normocephalic/atraumatic Head Injury: no evidence of injury Neck: non-tender, full range of motion, supple Respiratory: chest non-tender, lungs clear, normal breath sounds Cardiovascular: regular rate, rhythm, no edema Abdominal Exam: non tender, soft Extremity: non-tender, no pedal edema 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 Exam: normal hearing, normal speech Coordination/Gait: normal gait (for age) Motor/Sensory: no motor deficit, no sensory deficit Neurologic: 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 II-XII nml as tested Integumentary: normal color Psych/Mental Status: oriented x 3 (otiented x [address]) - Glascow Coma Scale Best Eye Response: (4) open spontaneously Best Verbal Response: (5) oriented Best Motor Response: (6) obeys commands Progress - PLAN OF CARE/RESULTS Progress/Plan/Lab Results: Laboratory Results - last 24 hr 01/22/19 01/22/19 15:29 19:52 Vitamin B12 762 TSH 3.11 Free T4 0.91 L Urine Source CLEAN CATCH Urine Color YELLOW Urine Turbidity CLEAR Urine pH 6.0 Ur Specific [place] 1.023 Urine Protein TRACE A Ur Glucose (Stick) NEGATIVE Ur Ketones (Stick) 40 A Urine Blood NEGATIVE Urine Nitrite NEGATIVE Urine Bilirubin NEGATIVE Urobilinogen Dipstick 2 A Urine Leukocytes NEGATIVE Urine WBC (Auto) <10 Urine RBC (Auto) <10 U Epithel Cells (Auto) <10 Urine Bacteria (Auto) NEGATIVE Orders Category Date Time Status Admit - [facility] Routine AdmDCTranf 01/23/19 00:13 Active Activity - Up with Assistance ORDERED Care 01/23/19 00:13 Active Cardiac Monitoring DIRECTED Care 01/22/19 14:36 Completed Finger Stick Blood Sugar (ED) DIRECTED Care 01/22/19 14:36 Completed Intake and Output-Strict ORDERED Care 01/23/19 00:13 Active Misc. NRSG Communication Order DIRECTED Care 01/22/19 14:36 Completed Saline Loc NOW Care 01/22/19 14:36 Completed Vital Signs Order Q 8-HR ASSESS Care 01/23/19 00:13 Active Z-Document. for Tele Applied ORDERED Care 01/23/19 00:13 Completed [facility] Routine Cons 01/23/19 00:13 Ordered Social Service Consult Routine Cons 01/23/19 00:13 Active Heart Healthy Diet Diet 01/23/19 00:13 Active CHEST-PORTABLE [RAD] Stat Exams 01/22/19 14:[address] HEAD W/O CONTRAST [CT] Stat Exams 01/22/19 14:36 Completed BASIC METABOLIC PANEL [CHEM] Routine Lab 01/23/19 06:30 Completed CBC WITH DIFF [HEME] Routine Lab 01/23/19 06:30 Completed CBC WITH ELECTRONIC DIFF [HEME] Stat Lab 01/22/19 15:29 Completed COMPREHENSIVE METABOLIC PANEL [CHEM] Stat Lab 01/22/19 15:29 Completed FREE T4 Stat Lab 01/22/19 15:29 Completed PROTIME WITH INR [COAG] Stat Lab 01/22/19 15:29 Completed PTT [COAG] Stat Lab 01/22/19 15:29 Completed TROPONIN T Stat Lab 01/22/19 15:29 Completed TSH Stat Lab 01/22/19 15:29 Completed UA [URINALYSIS W/POSS RFLX CULT] [URINALYSIS] Stat Lab 01/22/19 19:52 Completed URINALYSIS W/POSS RFLX CULT [URINALYSIS] Stat Lab 01/22/19 15:35 Completed URINE DRUG SCREEN Stat Lab 01/22/19 15:35 Completed VITAMIN B12 Stat Lab 01/22/19 15:29 Completed 0.9% Sodium Chloride Inj [Ns] 1,000 ml Med 01/23/19 00:13 Active IV 100 mls/hr 0.9% Sodium Chloride Inj [Ns] 1,000 ml Med 01/22/19 16:54 Discontinued IV 999 mls/hr ATORVAstatin [Lipitor] Med 01/23/19 21:00 Active 80 mg PO QHS Acetaminophen 10 mg/kg [Tylenol 10 mg/kg] Med 01/22/19 19:20 Discontinued 1 each PO NOW ONE Acetaminophen [Tylenol] Med 01/22/19 19:45 Discontinued 650 mg PO NOW ONE Acetaminophen [Tylenol] Med 01/23/19 00:13 Active 650 mg PO Q6H PRN PRN Aspirin Med 01/23/19 09:00 Active 81 mg PO DAILY Clopidogrel [Plavix] Med 01/23/19 09:00 Active 75 mg PO DAILY Haloperidol [Haldol] Med 01/22/19 21:05 Discontinued 5 mg PO NOW ONE Ketorolac [Toradol] Med 01/22/19 20:12 Discontinued 15 mg IV NOW ONE Memantine [Namenda] Med 01/23/19 09:00 Active 10 mg PO BID Montelukast [Singulair] Med 01/23/19 09:00 Active 10 mg PO DAILY Omeprazole [Prilosec] Med 01/23/19 09:00 Active 20 mg PO DAILY Ondansetron [Zofran] Med 01/23/19 00:13 Active 4 mg IV Q4H PRN PRN Trazodone [Desyrel] Med 01/23/19 21:00 Active 50 mg PO QHS Venlafaxine [Effexor] Med 01/23/19 09:00 Active 50 mg PO BID Telemetry [OM.EQ] Routine Oth 01/23/19 00:13 Active EKG [EKG] Stat Ther 01/22/19 14:36 Draft Transfer/Admit Order [TRANSFER] Routine Transfer 01/22/19 22:29 Completed Patient received IVF for a serum cr of 2.0. he did not have hallucinations or any aggressive behaviour throughout ED stay. Relatives are okay for him to be discharged home and to follow up with his PCP On friday in 3 days Result Diagrams: 01/23/19 06:30 01/23/19 06:30 - REASSESSMENT Reassessment #1 Time Reassessed: 19:26 Status: other (patient creatinine has increase from 1.5 previously to 2 pesently receiving IVF. he now reports left lower back pain which feels like his previous kidney stones which he has had. will recheck UA based on his symptom and give tylenol 1gm. he later wants toradol as he was unhappy with just tylenol.) Reassessment #2 Time Reassessed: 08:40 Status: worsening (family states that patient had kick the door open aggressively and has become aggresive towards family here stating he wants to go home. The 2 family at bed side had spoken with patient,s Nephew who knew him well and he states he had wanted him admitted and stabilised which they all now agrees with . urine tox is neg and repeat UA shows no microscopic hematuria.) - XRAY 1 XRAY Study: Chest ( CHEST-PORTABLE - 01/22/2019 INDICATION: stroke like symptoms COMPARISON: 11/25/2018 FINDINGS: Stable large hiatal hernia at the right lung base. The lungs are clear. Heart size is normal. No pneumothorax or pleural effusion. IMPRESSION: No acute disease or change from prior. Elect ronically signed by Rocco Moody 01/22/2019 3:03 PM 01/22/19 1503 Interpreting Physician: Rocco Moody MD Dictated Date/Time: 01/22/19 1502) - CT/MRI 1 CT Study: Head ( CT HEAD W/O CONTRAST - 01/22/2019 INDICATION: stroke like symptoms COMPARISON: 11/25/2018 FINDINGS: There is stable significant cerebral atrophy with diffuse ventriculomegaly. Stable mild cerebral white matter chronic microvascular ischemia. No intracranial mass or hemorrhage. The skull is intact. The sinuses are clear. IMPRESSION: No change from prior. This exam was performed using automated exposure control, adjustment of mA or kV according to patient size, and/or use of iterative reconstruction technique Electronically signed by Rocco Moody 01/22/2019 3:15 PM) - CONSULTS/PCP/HOSPITALIST Notification #1 *Consult/PCP/Hospitalist*: Dr Arora Time Discussed: 21:10 Consult Disposition: Admit (accepts admission.) Departure - Departure Date of Disposition Decision: 01/22/19 Time of Disposition Decision: 21:10 DIAGNOSIS: Visual hallucination Low back pain Qualifiers: Chronicity: unspecified Back pain laterality: left Sciatica presence: without sciatica Qualified Code(s): M54.5 - Low back pain Alzheimer disease Qualifiers: Alzheimer's disease onset: unspecified onset Dementia behavioral disturbance: with behavioral disturbance Qualified Code(s): G30.9 - Alzheimer's disease, unspecified Disposition: HOME 01 Certified Medical Emergency: Emergent Condition: Fair - Critical Care Note This patient required my direct & personal management of CC.: No Attestation - Physician/ LULA Attestation Patient care was provided by Advanced Practice Provider:: No The physician spent face to face time with patient:: Yes Advanced Practice Provider documentation review:: Supervising physician onsite and consulted in the evaluation and care of this patient. The physician did have a face to face encounter with the patient.
--- NOTE | 2019-01-22 15:05 | Diag Imaging Result Doc PS360 ---
CHEST-PORTABLE - 01/22/2019 INDICATION: stroke like symptoms COMPARISON: 11/25/2018 FINDINGS: Stable large hiatal hernia at the right lung base. The lungs are clear. Heart size is normal. No pneumothorax or pleural effusion. IMPRESSION: No acute disease or change from prior. Electronically signed by Rocco Moody 01/22/2019 3:03 PM
--- NOTE | 2019-01-22 15:17 | Diag Imaging Result Doc PS360 ---
CT HEAD W/O CONTRAST - 01/22/2019 INDICATION: stroke like symptoms COMPARISON: 11/25/2018 FINDINGS: There is stable significant cerebral atrophy with diffuse ventriculomegaly. Stable mild cerebral white matter chronic microvascular ischemia. No intracranial mass or hemorrhage. The skull is intact. The sinuses are clear. IMPRESSION: No change from prior. This exam was performed using automated exposure control, adjustment of mA or kV according to patient size, and/or use of iterative reconstruction technique Electronically signed by Rocco Moody 01/22/2019 3:15 PM
--- NOTE | 2019-01-22 15:17 | EKG Report ---
Test Performed on : 01/22/2019 3:15:45 PM Test Reason : Stroke like symptoms Blood Pressure : / mmHG Vent. Rate : 060 BPM Atrial Rate : 060 BPM P-R Int : 260 ms QRS Dur : 088 ms QT Int : 430 ms P-R-T Axes : 054 062 064 degrees QTc Int : 430 ms Sinus rhythm. with 1st degree AV block. Septal infarct , age undetermined Abnormal ECG When compared with ECG of 25-NOV-2018 17:49, No significant change was found Unconfirmed Result
[2019-01-22 15:44] LABS: URINE SOURCE CLEAN CATCH
[2019-01-22 15:59] LABS: BASO# 0.04 X1000 (0.0-0.2); BASO% 0.6 % (0.0-0.8); EOS# 0.15 X1000 (0.0-0.7); EOS% 2.1 % (0.0-10.0); HEMATOCRIT 38.5 % (42.0-52.0); HEMOGLOBIN 12.3 g/dL (14.0-18.0); IMM GRAN# 0.02 X1000 (0.0-0.04); IMM GRAN% 0.3 % (0.0-0.5); LYMPH# 1.38 X1000 (1.2-3.4); LYMPH% 19.4 % (20.5-51.1); MCH 31.6 PG (27-31); MCHC 31.9 g/dL (33-37); MONO# 0.69 X1000 (0.11-0.59); MONO% 9.7 % (1.7-9.3); MPV 9.7 FL (7.4-10.4); NEUT# 4.84 X1000 (1.4-6.5); NEUT% 67.9 % (42.2-75.2); PLT 220 X1000 (130-400); RBC 3.89 XMIL (4.7-6.1); RDW 13.3 % (11.5-14.5); WBC 7.12 X1000 (4.8-10.8)
[2019-01-22 15:59] LABS: BILIRUBIN URINE NEGATIVE (NEGATIVE); BLOOD URINE NEGATIVE (NEGATIVE); COLOR YELLOW; GLUCOSE URINE NEGATIVE (NEGATIVE); KETONE URINE 10 mg/dL (NEGATIVE); LEUKOCYTES URINE NEGATIVE (NEGATIVE); NITRITE URINE NEGATIVE (NEGATIVE); PROTEIN URINE 30 mg/dL (NEGATIVE); SP GRAVITY URINE 1.027; TURBIDITY URINE CLEAR (CLEAR); UROBILINOGEN URINE 2 mg/dL (NORMAL)
[2019-01-22 16:00] LABS: INR 0.99; PROTIME 13.2 Seconds (11.0-16.0)
[2019-01-22 16:00] LABS: UR EPITHELIAL CELLS <10 /HPF (<10); URINE BACTERIA NEGATIVE /HPF; URINE RBC <10 /HPF (<10); URINE WBC <10 /HPF (<10)
[2019-01-22 16:03] LABS: PTT 28.7 Seconds (22.3-41.8)
[2019-01-22 16:08] LABS: ALB/GLOB RATIO 1.7; ALBUMIN 3.8 g/dL (3.5-5.0); CALCIUM 9.1 mg/dL (8.8-10.2); POTASSIUM 4.6 mmol/L (3.5-5.1); TOTAL BILIRUBIN 0.47 mg/dL (0.20-1.00); TOTAL PROTEIN 6.1 g/dL (6.3-8.3)
[2019-01-22] MEDS ORDERED: NS 1,000 ML IV ONE (16:54)
[2019-01-22 17:28] LABS: UR AMPHETAMINES QUAL NONE DETECTED (NONE DETECT); UR BARBITUATES QUAL NONE DETECTED (NONE DETECT); UR BENZODIAZEPIN QUAL NONE DETECTED (NONE DETECT); UR CANNABINOIDS QUAL NONE DETECTED (NONE DETECT); UR COCAINE QUAL NONE DETECTED (NONE DETECT); UR METHADONE QUAL NONE DETECTED (NONE DETECT); UR OPIATES QUAL NONE DETECTED (NONE DETECT); UR OXYCODONE QUAL NONE DETECTED (NONE DETECT); UR PCP QUAL NONE DETECTED (NONE DETECT)
[2019-01-22 17:47] LABS: FREE T4 0.91 ng/dL (0.93-1.70); TSH 3.11 uIUmL (0.27-4.20)
[2019-01-22] MEDS ORDERED: TYLENOL 10 MG/KG PO ONE (19:20)
[2019-01-22] MEDS ORDERED: TYLENOL PO ONE (19:45)
[2019-01-22 19:57] LABS: URINE SOURCE CLEAN CATCH
[2019-01-22] MEDS ORDERED: TORADOL IV ONE (20:12)
[2019-01-22 20:13] LABS: BILIRUBIN URINE NEGATIVE (NEGATIVE); BLOOD URINE NEGATIVE (NEGATIVE); COLOR YELLOW; GLUCOSE URINE NEGATIVE (NEGATIVE); KETONE URINE 40 mg/dL (NEGATIVE); LEUKOCYTES URINE NEGATIVE (NEGATIVE); NITRITE URINE NEGATIVE (NEGATIVE); PROTEIN URINE TRACE mg/dL (NEGATIVE); SP GRAVITY URINE 1.023; TURBIDITY URINE CLEAR (CLEAR); UROBILINOGEN URINE 2 mg/dL (NORMAL)
[2019-01-22 20:15] LABS: UR EPITHELIAL CELLS <10 /HPF (<10); URINE BACTERIA NEGATIVE /HPF; URINE RBC <10 /HPF (<10); URINE WBC <10 /HPF (<10)
[2019-01-22] MEDS ORDERED: HALDOL PO ONE (21:05)
--- NOTE | 2019-01-22 23:47 | HISTORY AND PHYSICAL ---
PRIMARY CARE PHYSICIAN: Dr. Grossman. CHIEF COMPLAINT: Altered mental status. Suicidal ideation. HISTORY OF PRESENTING ILLNESS: A 78-year-old male with a history of dementia, hypertension, hyperlipidemia and coronary disease who was brought to the emergency department due to patient having altered mental status. Apparently family member stating that his mental status was worse than his baseline. The patient was also depressed and was having thoughts of hurting himself. Family states that they took all the guns out of his house. He is brought to the emergency department. He still was somewhat agitated and somewhat confused and due to his presenting symptoms, it was thought that he would need admission for further management. At the time of my examination, patient denied any headache, fever, chills, chest pain, shortness of breath or weight changes. States that he still wants to hurt himself and does not feel well. PAST MEDICAL HISTORY: Includes hypertension, hyperlipidemia, coronary disease, dementia. PAST SURGICAL HISTORY: Coronary stent, hernia repair, right rotator cuff surgery. ALLERGIES: Morphine and codeine. CURRENT MEDICATIONS: Aspirin 81 mg p.o. daily, atorvastatin 80 mg p.o. at bedtime, Plavix 75 mg p.o. daily, Namenda 10 mg p.o. b.i.d., Singulair 10 mg p.o. daily, omeprazole 20 mg p.o. daily, trazodone 50 mg p.o. at bedtime, Effexor 50 mg p.o. b.i.d. SOCIAL HISTORY: He is a former smoker. No history of alcohol or illicit drug use. FAMILY HISTORY: No history of coronary disease. REVIEW OF SYSTEMS: Fourteen point review of systems is as in HPI. Other systems negative. PHYSICAL EXAMINATION: GENERAL: Cooperative, friendly male. He is resting comfortably now. VITAL SIGNS: Temperature 98.4 degrees, pulse 68, respirations 20, blood pressure 199/82. HEENT: Atraumatic, normocephalic. Extraocular movements intact. PERRLA. NECK: No masses. CHEST: Clear to auscultation. CARDIOVASCULAR: Regular rate and rhythm. ABDOMEN: Soft. Positive bowel sounds. EXTREMITIES: No edema. NEUROLOGIC: He is awake, alert, oriented x2. : No bladder distention. SKIN: Warm. PSYCH: He seems to be depressed and has flat affect. LABORATORIES AND STUDIES: WBC 7.12, hemoglobin 12.3, hematocrit 38.5, platelets 220,000. Sodium 139, potassium 4.6, chloride 102, CO2 22, BUN is 27, creatinine is 2.0, glucose 95. Tox screen is negative. ASSESSMENT: A 78-year-old male with a history of hypertension, hyperlipidemia, coronary disease, and dementia, who presented to emergency department with several days history of having some mental status changes. Apparently family states that he is worse than his baseline. Patient does have a history of dementia and family was stated he was having some behavioral disturbances. He also had thoughts of hurting himself. He was evaluated in the emergency department. Due to his presenting symptoms, he will require admission for further management. 1. Altered mental status. 2, Suicidial Ideation/ Depression. 3. Dementia. 4. Acute kidney injury. 5. Hypertension. PLAN: 1. We will admit patient to medical floor with telemetry. 2. Have patient have a sitter. 3. Continue with neuro checks. 4. We will consult Psychiatry. 5. We will monitor his renal function. 6. We will monitor blood pressure and resume antihypertensive agent. 7. The patient on DVT prophylaxis with SCDs. 8. We will continue to follow and reassess. Make further recommendation based on patient's clinical course. cc: Judah Arora MD MTDD
[2019-01-23] MEDS ORDERED: ZOFRAN IV PRN (00:13)
[2019-01-23] MEDS: NS 1,000 ML IV SCH ×3 (04:42→20:00)
[2019-01-23 06:57] LABS: BASO# 0.04 X1000 (0.0-0.2); BASO% 0.5 % (0.0-0.8); EOS# 0.22 X1000 (0.0-0.7); EOS% 2.7 % (0.0-10.0); HEMATOCRIT 39.1 % (42.0-52.0); HEMOGLOBIN 12.5 g/dL (14.0-18.0); IMM GRAN# 0.02 X1000 (0.0-0.04); IMM GRAN% 0.2 % (0.0-0.5); LYMPH# 1.12 X1000 (1.2-3.4); LYMPH% 13.8 % (20.5-51.1); MCH 31.6 PG (27-31); MCV 98.7 FL (81-99); MONO# 0.84 X1000 (0.11-0.59); MONO% 10.3 % (1.7-9.3); MPV 9.3 FL (7.4-10.4); NEUT# 5.88 X1000 (1.4-6.5); NEUT% 72.5 % (42.2-75.2); PLT 199 X1000 (130-400); RBC 3.96 XMIL (4.7-6.1); RDW 13.1 % (11.5-14.5); WBC 8.12 X1000 (4.8-10.8)
[2019-01-23 07:28] LABS: CALCIUM 8.9 mg/dL (8.8-10.2); CREATININE 2.1 mg/dL (0.7-1.2); POTASSIUM 4.6 mmol/L (3.5-5.1)
[2019-01-23] MEDS: NAMENDA PO SCH ×2 (09:24→20:42)
[2019-01-23] MEDS: PLAVIX PO SCH (09:24)
[2019-01-23] MEDS: EFFEXOR PO SCH ×2 (09:24→20:42)
[2019-01-23] MEDS: SINGULAIR PO SCH (09:24)
[2019-01-23] MEDS: ASPIRIN PO SCH (09:24)
[2019-01-23] MEDS: PRILOSEC PO SCH (09:24)
[2019-01-23] MEDS: FLOMAX PO SCH (09:27)
--- NOTE | 2019-01-23 15:08 | PROGRESS NOTE ---
DATE: 01/23/2019 SUBJECTIVE: Patient is still somewhat confused. Does answer questions but does not follow commands. EXAM: Temp 98, pulse 79, respiratory rate 18, BP 116/50.General: Patient is awake, alert. He is in no current respiratory distress. He is pleasant to talk with, knows that he is in the hospital bed but is unsure why. HEENT: Normocephalic, atraumatic. MARTHA. Neck: Supple. No JVD. Cardiovascular: Regular rate. No murmurs. Chest: Clear. Abdomen: Soft. Extremities: Moves all extremities. ASSESSMENT: 1. 78-year-old with dementia and altered mental status. Unclear of what his baseline is, although the family notes that yesterday he was not quite at his baseline. 2. Known dementia. 3. Acute on chronic kidney injury. His creatinine is still 2.0. His baseline appears to be around 1.1. 4. Hypertension. PLAN: We will continue patient in the hospital. We will monitor his blood pressures. Recheck his labs in the a.m. Continue fluids and will follow. cc: Nik Starks MD
[2019-01-23] MEDS: DESYREL PO SCH (20:41)
[2019-01-23] MEDS: ARICEPT PO SCH (20:41)
[2019-01-23] MEDS: LIPITOR PO SCH (20:42)
[2019-01-24] MEDS: TYLENOL PO PRN (05:21)
[2019-01-24] MEDS: SINGULAIR PO SCH (09:16)
[2019-01-24] MEDS: ASPIRIN PO SCH (09:16)
[2019-01-24] MEDS: FLOMAX PO SCH (09:16)
[2019-01-24] MEDS: PLAVIX PO SCH (09:16)
[2019-01-24] MEDS: PRILOSEC PO SCH (09:16)
[2019-01-24] MEDS: EFFEXOR PO SCH ×2 (09:16→20:26)
[2019-01-24] MEDS: NAMENDA PO SCH ×2 (09:16→20:26)
--- NOTE | 2019-01-24 14:26 | PROGRESS NOTE ---
DATE: 01/24/2019 SUBJECTIVE: The patient and his family notes that he is doing much better. He is no longer confused or disoriented. Appears to be back to his baseline. Has no suicidal ideations. PHYSICAL EXAMINATION: Vitals: He is afebrile. Temperature 98 degrees, pulse 69, respiratory rate 20, BP 142/63. General: He is sitting in the chair, talking with his family. He is eating lunch. HEENT: Normocephalic. Neck: Supple. Cardiovascular: Regular rate. Chest: Clear. Abdomen: Soft. Extremities: Moves all extremities. ASSESSMENT: 1. Dementia. 2. Altered mental status. Appears to be back to his baseline. 3. Acute on chronic renal failure. Creatinine is still around 2.1 with BUN 22. His baseline is around 1.0. We are going to check a renal ultrasound. 4. Hypertension, stable. 5. Suicide ideations. Appears to have resolved. PLAN: We are going to check renal ultrasound. Recheck his kidney function in the morning. Ask [employer]endor to assist in discharge planning. Hopefully he can discharge home tomorrow. cc: Nik Starks MD
--- NOTE | 2019-01-24 18:34 | Diag Imaging Result Doc PS360 ---
EXAM: US RENAL 2 (RETROPER) COMPLETE HISTORY: acute on crx renal failure TECHNIQUE: Renal ultrasound COMPARISON: None. FINDINGS: The right kidney measures 8.6 x 5.3 x 4.3 cm. The left kidney measures 10.2 x 5.5 x 5.5 cm. No right-sided hydronephrosis. There is moderate left-sided hydronephrosis. Normal renal echogenicity. No stones. The urinary bladder is moderately distended. Bladder volume is 116 cc. IMPRESSION: Left-sided hydronephrosis Electronically signed by Varun Sung 01/24/2019 6:31 PM
[2019-01-24] MEDS: ARICEPT PO SCH (20:26)
[2019-01-24] MEDS: LIPITOR PO SCH (20:26)
[2019-01-24] MEDS: DESYREL PO SCH (20:26)
[2019-01-25] MEDS: TYLENOL PO PRN (03:05)
--- NOTE | 2019-01-25 08:26 | PROGRESS NOTE ---
DATE: 01/25/2019 SUBJECTIVE: The patient notes that he was starting to ambulate a little bit better yesterday, still needed some assistance. The patient states he feels a lot better. Denies any complaints. Asking to go home. PHYSICAL EXAMINATION: Temperature 98.2, pulse 70, respiratory rate 18, BP 122/57. General: Patient is awake, alert. He is in no respiratory distress. HEENT: Normocephalic. Neck: Supple. Cardiovascular: Regular rate. No murmurs. Chest: Clear. Abdomen: Soft, nondistended. Extremities: Moves all extremities. Neurologic: No changes. ASSESSMENT: 1. Hydronephrosis with bladder distention likely causing outlet obstruction with his acute renal failure. 2. Acute renal failure. Creatinine is still elevated at 2.1. 3. Dementia. 4. Hypertension. PLAN: We are going to ask urology to evaluate his hydronephrosis and bladder outlet obstruction. He is already on Flomax. We will continue to follow. Further orders as needed. cc: Nki Starks MD
[2019-01-25] MEDS: FLOMAX PO SCH (09:57)
[2019-01-25] MEDS: ASPIRIN PO SCH (09:57)
[2019-01-25] MEDS: PLAVIX PO SCH (09:57)
[2019-01-25] MEDS: SINGULAIR PO SCH (09:57)
[2019-01-25] MEDS: EFFEXOR PO SCH ×2 (09:57→21:25)
[2019-01-25] MEDS: NAMENDA PO SCH ×2 (09:57→21:25)
[2019-01-25] MEDS: PRILOSEC PO SCH (09:57)
[2019-01-25 10:11] LABS: HEMATOCRIT 38.5 % (42.0-52.0); HEMOGLOBIN 12.2 g/dL (14.0-18.0); MCH 31.2 PG (27-31); MCHC 31.7 g/dL (33-37); MCV 98.5 FL (81-99); MPV 9.2 FL (7.4-10.4); RBC 3.91 XMIL (4.7-6.1); RDW 12.7 % (11.5-14.5); WBC 8.03 X1000 (4.8-10.8)
[2019-01-25 11:08] LABS: ALB/GLOB RATIO 0.9; ALBUMIN 3.4 g/dL (3.5-5.0); CALCIUM 9.2 mg/dL (8.8-10.2); POTASSIUM 3.9 mmol/L (3.5-5.1); TOTAL BILIRUBIN 0.5 mg/dL (0.20-1.00); TOTAL PROTEIN 7.1 g/dL (6.3-8.3)
[2019-01-25] MEDS ORDERED: ZOFRAN PO PRN (13:12)
--- NOTE | 2019-01-25 20:02 | CONSULTATION ---
DATE OF CONSULTATION: 01/25/2019 ATTENDING AND REFERRING PHYSICIAN: Hospitalist. CHIEF COMPLAINT: Confusion. HISTORY OF PRESENT ILLNESS: This 78-year-old male was admitted with increased mental confusion. It was noted he had an elevated creatinine level to 2.1. A renal ultrasound revealed mild left hydronephrosis, but no other evidence of stones. His right kidney was about 8 cm in length and the left kidney 10 cm in length. The patient states he has a history of kidney stones having passed many previously. He denies any previous urologic surgery. He has no problems with urinary infection. He does take Flomax 0.4 mg a day and that helps him empty but states he has no problems voiding. PAST MEDICAL HISTORY: Hypertension, elevated cholesterol, coronary artery disease, dementia. PAST SURGICAL HISTORY: Right inguinal hernia repair, right rotator cuff surgery, coronary artery stent placement. SOCIAL HISTORY: He has no current tobacco or alcohol use. ALLERGIES: He is allergic to morphine and codeine. REVIEW OF SYSTEMS: He denies any problems with diabetes, strokes, seizures, recent pulmonary or bowel problems. He states he is depressed. PHYSICAL EXAMINATION: General: A normally developed, well-nourished, age apparent, white male, who is cooperative. HEENT: Normal for age. Lungs: Clear. Cardiovascular: Regular rate and rhythm. Abdomen: Mildly protuberant, soft, nontender. No hepatosplenomegaly or masses. Normal bowel sounds. : Normal male. Foreskin retracts. Both testes are down. Scrotal exam is normal. No inguinal hernias. Rectal: Normal sphincter tone. Prostate around 30 to 40 g, smooth and symmetrical. Extremities: No C, C or E. Neurologic: No focal deficits. LABORATORY EVALUATION: Has a white count of 8.03, hemoglobin of 12.2, hematocrit 38.5 and platelets are 225,000. Serum electrolytes are normal. His bicarb however is low at 16. BUN 23, creatinine 2.0. Renal ultrasound is as noted in the HPI. IMPRESSION: 1. Left hydronephrosis by ultrasound. 2. History of stones. 3. Renal insufficiency. 4. Right kidney smaller than left. RECOMMENDATIONS: Continue Flomax at 0.4 mg a day and obtain CT renal stone search. The patient did have a postvoid scan, which was well within the normal limits at 21 mL. Thank you for this consultation . cc: Marcelo Salinas MD
--- NOTE | 2019-01-25 20:38 | Diag Imaging Result Doc PS360 ---
EXAM: CT RENAL STONE SEARCH 01/25/2019 HISTORY: left hydronephrosis. TECHNIQUE: This exam was performed using automated exposure control, adjustment of mA or kV according to patient size, and/or use of iterative reconstruction technique. COMMENT: There are no previous studies. There is a large hiatal hernia containing the stomach as well as parts of the colon. There is no evidence of acute pulmonary disease. There is some gas and stool in the colon without evidence of dilatation. There are small bilateral renal stones largest being 3 mm in size. There is hydronephrosis on the left. There is a stone in the lower mid ureter at the level of the iliac crest on the left measuring almost 7 mm in diameter. There are calcified stones in the gallbladder. There are granulomata in the liver and spleen. The small bowel is not distended. The pancreas is somewhat atrophic. There is no evidence of appendicitis. There is marked diverticulosis in the sigmoid colon without evidence of active diverticulitis. The urinary bladder is not distended. There are no additional ureteral stones. There are degenerative changes in the lumbar spine particularly at the disc and facet joints at L5-S1. IMPRESSION: 1. Left hydronephrosis with ureterolithiasis. Bilateral nephrolithiasis. 2. Large hiatal hernia. 3. Cholelithiasis. 4. Diverticulosis coli. Electronically signed by Presley Lakhani 01/25/2019 8:36 PM
[2019-01-25] MEDS: DESYREL PO SCH (21:07)
[2019-01-25] MEDS: ARICEPT PO SCH (21:25)
[2019-01-25] MEDS: LIPITOR PO SCH (21:26)
[2019-01-26] MEDS: TYLENOL PO PRN (04:15)
[2019-01-26 07:16] LABS: BASO# 0.04 X1000 (0.0-0.2); BASO% 0.5 % (0.0-0.8); EOS# 0.23 X1000 (0.0-0.7); EOS% 3.1 % (0.0-10.0); HEMATOCRIT 38.7 % (42.0-52.0); HEMOGLOBIN 12.4 g/dL (14.0-18.0); IMM GRAN# 0.02 X1000 (0.0-0.04); IMM GRAN% 0.3 % (0.0-0.5); LYMPH# 1.11 X1000 (1.2-3.4); MCH 31.3 PG (27-31); MCV 97.7 FL (81-99); MONO# 0.64 X1000 (0.11-0.59); MONO% 8.7 % (1.7-9.3); MPV 9.2 FL (7.4-10.4); NEUT# 5.35 X1000 (1.4-6.5); NEUT% 72.4 % (42.2-75.2); PLT 202 X1000 (130-400); RBC 3.96 XMIL (4.7-6.1); RDW 12.6 % (11.5-14.5); WBC 7.39 X1000 (4.8-10.8)
[2019-01-26 07:39] LABS: CREATININE 1.9 mg/dL (0.7-1.2)
[2019-01-26] MEDS: SINGULAIR PO SCH (09:23)
[2019-01-26] MEDS: PLAVIX PO SCH (09:23)
[2019-01-26] MEDS: NAMENDA PO SCH ×2 (09:23→20:57)
[2019-01-26] MEDS: EFFEXOR PO SCH ×2 (09:24→20:57)
[2019-01-26] MEDS: ASPIRIN PO SCH (09:24)
[2019-01-26] MEDS: FLOMAX PO SCH (09:24)
[2019-01-26] MEDS: PRILOSEC PO SCH (09:24)
--- NOTE | 2019-01-26 19:09 | PROGRESS NOTE ---
DATE: 01/26/2019 SUBJECTIVE: The patient is sitting at the edge of the bed. He just walked to the restroom to urinate. OBJECTIVE: Vital Signs: Temperature 98.2 degrees, blood pressure 149/78, heart rate 72, respirations 18, O2 saturation 98% on room air. General: This is a chronically ill-appearing elderly male, sitting at the edge of the bed in no acute distress. Heart: S1, S2 normal. Regular rate and rhythm. Lungs: Equal air entry bilaterally. No wheezing. No rales. No rhonchi. Abdomen: Positive bowel sounds. Soft, nontender, nondistended. Extremities: No edema, no cyanosis. Neurologic: The patient is alert and oriented x3. LABORATORY DATA: Sodium 140, potassium 4, BUN 21, creatinine 1.9, glucose 78. Hemoglobin 12, hematocrit 38, platelets 202,000. ASSESSMENT AND PLAN: 1. Left hydronephrosis with ureterolithiasis. Management as per the urologist. 2. Acute kidney injury. Likely secondary to the patient's underlying urologic condition. This appears to be slowly improving. The patient's postvoid residual this morning was noted to be zero. We will continue to monitor closely and avoid nephrotoxic agents. 3. Hypertension. We will start the patient on Norvasc. 4. Dementia. Continue on Aricept and Namenda. 5. Gastroesophageal reflux disease. Continue on Prilosec. 6. Benign prostatic hypertrophy. Continue on Flomax. 7. Situational depression. Continue on Effexor. 8. Deep venous thrombosis prophylaxis. We will start the patient on sequential compression devices. cc: MD YEISON Lr
[2019-01-26] MEDS: DESYREL PO SCH (20:57)
[2019-01-26] MEDS: LIPITOR PO SCH (20:58)
[2019-01-26] MEDS: ARICEPT PO SCH (20:58)
[2019-01-26] MEDS: HEPARIN SUBQ SCH (21:01)
[2019-01-27 07:25] LABS: HEMATOCRIT 38.6 % (42.0-52.0); HEMOGLOBIN 12.5 g/dL (14.0-18.0); MCH 31.3 PG (27-31); MCHC 32.4 g/dL (33-37); MCV 96.7 FL (81-99); MPV 9.2 FL (7.4-10.4); RBC 3.99 XMIL (4.7-6.1); RDW 12.4 % (11.5-14.5); WBC 5.55 X1000 (4.8-10.8)
[2019-01-27 07:43] LABS: CALCIUM 8.9 mg/dL (8.8-10.2); CREATININE 1.9 mg/dL (0.7-1.2); POTASSIUM 4.1 mmol/L (3.5-5.1)
[2019-01-27] MEDS ORDERED: DIPRIVAN 1% ONE (09:09)
[2019-01-27] MEDS ORDERED: XYLOCAINE-MPF 2% ONE (09:09)
[2019-01-27] MEDS ORDERED: KEFZOL 1 GM/D5W 1 GM/50 ML IVPB ONE (10:46)
[2019-01-27] MEDS ORDERED: ROBINUL ONE (11:06)
[2019-01-27] MEDS ORDERED: SODIUM CHLORIDE 0.9% 10 ML ONE (11:10)
[2019-01-27] MEDS ORDERED: NEO-SYNEPHRINE ONE (11:10)
[2019-01-27] MEDS ORDERED: ZOFRAN ONE (11:13)
[2019-01-27] MEDS ORDERED: DITROPAN PO PRN (12:19)
[2019-01-27] MEDS: HEPARIN SUBQ SCH ×2 (12:36→21:31)
[2019-01-27] MEDS: SINGULAIR PO SCH (12:37)
[2019-01-27] MEDS: NAMENDA PO SCH ×2 (12:37→21:19)
[2019-01-27] MEDS: ASPIRIN PO SCH (12:37)
[2019-01-27] MEDS: FLOMAX PO SCH (12:37)
[2019-01-27] MEDS: EFFEXOR PO SCH ×2 (12:37→21:19)
[2019-01-27] MEDS: PRILOSEC PO SCH (12:37)
[2019-01-27] MEDS: PLAVIX PO SCH (12:37)
--- NOTE | 2019-01-27 12:58 | Diag Imaging Result Doc PS360 ---
FLUROSCOPY CYSTO - 01/27/2019 INDICATION: STONE L URETER TECHNIQUE: Fluoroscopy and multiple views of the abdomen. The exam was performed by the patient's urologist. 16 images were obtained. COMPARISON: CT from 01/25/2019 FINDINGS: On the sample box maker exam, the left mid ureter stone was visible. This was apparently extracted at this did not appear to be visible on the following images. A left nephroureteral stent was placed in good position. IMPRESSION: No complication. Electronically signed by Rocco Moody 01/27/2019 12:56 PM
[2019-01-27] MEDS ORDERED: NORCO-5 PO PRN (14:45)
[2019-01-27] MEDS ORDERED: APRESOLINE IV PRN (17:44)
[2019-01-27] MEDS ORDERED: APRESOLINE IV ONE (17:44)
--- NOTE | 2019-01-27 18:05 | OPERATIVE NOTE ---
PROCEDURE DATE: 01/27/2019 SURGEON: Marcelo Salinas MD. PREOPERATIVE DIAGNOSIS: Left mid ureteral stone causing left hydroureteronephrosis. POSTOPERATIVE DIAGNOSIS: Left mid ureteral stone causing left hydroureteronephrosis. PROCEDURE PERFORMED: 1. Cystoscopic exam. 2. Left ureteroscopy. 3. Laser lithotripsy of stone. 4. Basket extraction of fragments. 5. Placement of left double-J stent. ANESTHESIA: General via laryngeal mask. FINDINGS: Cystoscopic exam: Urethra - greater than 21 Dominican, without stricture. Prostate - coapting lateral lobes, elevated bladder neck, length approximately 4 cm. Bladder - normal ureteral orifices bilaterally. No papillary lesions. Grade 1 trabeculations. No diverticula. Rectal exam reveals a prostate of about 40 g, smooth, and symmetric. INDICATION FOR PROCEDURE: This 78-year-old male was admitted with dizziness. Evaluation revealed a 7 mm mid ureteral stone that was obstructing. DESCRIPTION OF PROCEDURE: After informed consent was obtained from the patient and him receiving IV antibiotics, he was taken the main OR cystoscopy room, placed in the supine position. General anesthesia via laryngeal mask was achieved. He was then placed in a low lithotomy position and prepped and draped in the usual sterile fashion for cystoscopic exam. A 21-Dominican sheath cystoscope was passed through the patient's urethra, prostate, and into the bladder without difficulty. Findings are as noted above. A 0.035 ZIPwire was passed through the cystoscope, engaged in the left ureteral orifice, advanced up into the kidney. The cystoscope was removed, leaving the ZIPwire in place to act as a safety wire. A 7-Dominican Storz semi-rigid ureteroscope was advanced through the patient's urethra, prostate, and into the bladder. A 0.035 Sensor wire was passed through the ureteroscope and into the left ureter. The ureteroscope was advanced over the Sensor wire but beneath the ZIPwire, up to the stone. The Sensor wire was removed. A 365 micron laser fiber was placed. Laser was set at 8 hertz and 8 muellre and the stone was fragmented. A total of 707 joules was used. A 4 wire Nitinol basket was placed and several passes were made to remove stone fragments. The largest were sent to Pathology for analysis. There were several stones left in the bladder to spontaneously pass. The ureteroscope was removed. The cystoscope was returned to the bladder over the ZIPwire. A 6-Dominican, 24 cm double-J stent was passed over the ZIPwire and up into the kidney. The renal end was verified by fluoroscopic exam, bladder end directly visualized. Bladder was drained. Cystoscope was removed. Stent removal string securely taped to the penile shaft. Rectal exam performed. He tolerated the procedure well. ESTIMATED BLOOD LOSS: Less than 1 mL. DISPOSITION: He was taken to recovery room in good condition. cc: Marcelo Salinas MD
[2019-01-27 18:46] LABS: URINE SOURCE CATH
[2019-01-27 18:56] LABS: COLOR BROWN; UR EPITHELIAL CELLS <10 /HPF (<10); URINE BACTERIA NEGATIVE /HPF; URINE RBC TNTC /HPF (<10); URINE WBC <10 /HPF (<10)
[2019-01-27 18:57] LABS: BILIRUBIN URINE NEGATIVE (NEGATIVE); BLOOD URINE LARGE (NEGATIVE); GLUCOSE URINE NEGATIVE (NEGATIVE); KETONE URINE 20 mg/dL (NEGATIVE); LEUKOCYTES URINE TRACE (NEGATIVE); NITRITE URINE NEGATIVE (NEGATIVE); PH URINE 6.5; PROTEIN URINE 100 mg/dL (NEGATIVE); SP GRAVITY URINE 1.012; TURBIDITY URINE TURBID (CLEAR); UROBILINOGEN URINE NORMAL (NORMAL)
--- NOTE | 2019-01-27 20:02 | PROGRESS NOTE ---
DATE: 01/27/2019 SUBJECTIVE: The patient underwent a urologic procedure this morning. His blood pressure is elevated. OBJECTIVE: Vital Signs: Temperature 98.3 degrees, blood pressure 213/84, heart rate 69, respirations 16, O2 saturation is 100% on room air. General: This is a chronically ill- appearing, elderly male, lying in bed in no acute distress. Heart: S1, S2 normal. Regular rate and rhythm. Lungs: Clear to auscultation bilaterally. Abdomen: Positive bowel sounds. Soft, nontender, nondistended. Extremities: No edema. No cyanosis. Neurologic: The patient is alert and oriented. LABORATORY DATA: White blood cell count 5.5, hemoglobin 12, hematocrit 38, platelets 238,000. Sodium 138, potassium 4.1, chloride 99, CO2 of 20, BUN 17, creatinine 1.9. ASSESSMENT AND PLAN: 1. Status post cystoscopy with lithotripsy and status post left ureteral stent placement secondary to left hydronephrosis with ureterolithiasis. Management as per the urologist. 2. Acute kidney injury. Stable. We will continue to monitor the patient's renal function closely. 3. Uncontrolled hypertension. We will start the patient on Coreg and Norvasc. We will also provide the patient with p.r.n. hydralazine whenever the systolic blood pressure is greater than 170. 4. Dementia. Continue on Aricept and Namenda. 5. Benign prostatic hypertrophy. Continue on Flomax. 6. Gastroesophageal reflux disease. Continue on Prilosec. 7. Situational depression. Continue on Effexor. 8. Deep vein thrombosis prophylaxis. Continue with sequential compression devices. cc: Katey Sky MD [facility]
[2019-01-27] MEDS ORDERED: COREG PO SCH (21:00)
[2019-01-27] MEDS ORDERED: NORVASC PO SCH (21:00)
[2019-01-27] MEDS: LIPITOR PO SCH (21:19)
[2019-01-27] MEDS: DESYREL PO SCH (21:19)
[2019-01-27] MEDS: ARICEPT PO SCH (21:20)
[2019-01-28 08:00] LABS: CALCIUM 8.8 mg/dL (8.8-10.2); CREATININE 1.5 mg/dL (0.7-1.2); POTASSIUM 4.2 mmol/L (3.5-5.1)
[2019-01-28] MEDS: SINGULAIR PO SCH (10:09)
[2019-01-28] MEDS: PLAVIX PO SCH (10:09)
[2019-01-28] MEDS: ASPIRIN PO SCH (10:09)
[2019-01-28] MEDS: FLOMAX PO SCH (10:09)
[2019-01-28] MEDS: NAMENDA PO SCH ×2 (10:09→21:34)
[2019-01-28] MEDS: PRILOSEC PO SCH (10:09)
[2019-01-28] MEDS: EFFEXOR PO SCH ×2 (10:10→21:33)
[2019-01-28] MEDS: HEPARIN SUBQ SCH ×2 (10:10→21:33)
[2019-01-28] MEDS ORDERED: BLISTEX MEDICATED BERRY LIP BALM TOP PRN (10:31)
[2019-01-28] MEDS: ARICEPT PO SCH (21:32)
[2019-01-28] MEDS: DESYREL PO SCH (21:33)
[2019-01-28] MEDS: LIPITOR PO SCH (21:34)
--- NOTE | 2019-01-28 21:59 | PROGRESS NOTE ---
DATE: 01/28/2019 SUBJECTIVE: The patient is resting comfortably in bed. He has no complaints at this time. OBJECTIVE: Vital Signs: Temperature 98.2 degrees, blood pressure 125/47, heart rate 79, respirations 18, O2 saturation is 97% on room air. General: This is an elderly male lying in bed in no acute distress. Heart: S1, S2 normal. Regular rate and rhythm. Lungs: Clear to auscultation bilaterally. Abdomen: Positive bowel sounds. Soft, nontender, nondistended. Extremities: No edema. No cyanosis. Neurologic: The patient is alert and oriented x3. LABORATORY DATA: Sodium 141, BUN 17, creatinine 1.5, potassium 4.2. ASSESSMENT AND PLAN: 1. Status post cystoscopy with left ureteroscopy and left double-J stent placement secondary to left hydroureteronephrosis and ureteral stone. Stable. 2. Acute kidney injury. Slowly improving. 3. Hypertension. Controlled. 4. Benign prostatic hypertrophy. Continue on Flomax. 5. Dementia. Continue on Aricept and Namenda. 6. Situational depression. Continue on Effexor. 7. Gastroesophageal reflux disease. Continue on Prilosec. 8. Disposition. We will plan to discharge the patient to [facility] tomorrow. cc: Katey Sky MD
[2019-01-29 07:39] VITALS: BP 122/64
[2019-01-29 08:13] LABS: CREATININE 1.8 mg/dL (0.7-1.2); POTASSIUM 4.4 mmol/L (3.5-5.1)
[2019-01-29] MEDS: FLOMAX PO SCH (10:16)
[2019-01-29] MEDS: PRILOSEC PO SCH (10:16)
[2019-01-29] MEDS: NAMENDA PO SCH (10:17)
[2019-01-29] MEDS: EFFEXOR PO SCH (10:17)
[2019-01-29] MEDS: SINGULAIR PO SCH (10:17)
[2019-01-29] MEDS: PLAVIX PO SCH (10:17)
[2019-01-29] MEDS: ASPIRIN PO SCH (10:17)
[2019-01-29] MEDS: HEPARIN SUBQ SCH (10:47)
[2019-01-29 11:03] LABS: HEMOGLOBIN 11.9 g/dL (14.0-18.0)
--- NOTE | 2019-01-29 12:09 | DISCHARGE SUMMARY ---
ADMISSION DATE: 01/22/2019 DISCHARGE DATE: 01/29/2019 FINAL DISCHARGE DIAGNOSES: 1. Status post cystoscopy with left ureteroscopy and left double-J stent placement secondary to left hydroureteronephrosis with a ureteral stone. 2. Acute kidney injury. 3. Hypertension. 4. Benign prostatic hypertrophy. 5. Dementia. 6. Situational depression. 7. Gastroesophageal reflux disease. CONSULTATIONS: Urology consultation with Dr. Salinas. PROCEDURES: 1. Cystoscopy. 2. Left ureteroscopy. 3. Laser lithotripsy of stone. 4. Left double-J stent placement. HOSPITAL COURSE: Mr. Salinas is a 78-year-old male with a history of hypertension, dementia and BPH, who was initially brought to the ER with altered mental status. On admission, there was some question of the patient being depressed and being suicidal. On admission, the patient was noted to be in acute kidney injury with a BUN of 27 and a creatinine of 2. Urine studies were also obtained. A renal ultrasound was done that revealed left-sided hydronephrosis; as a result, Urology was consulted. After further questioning of the patient, he stated that he was not feeling suicidal or depressed and felt fine. A renal CT was done that revealed left hydronephrosis with ureterolithiasis. The decision was made to take the patient to the OR to undergo cystoscopy. The patient was taken to the OR on 01/27/2019, at which time a left ureteroscopy was performed. Laser lithotripsy and placement of a left double-J stent was performed. The patient did well postoperatively. His renal function remained stable. He had no difficulty with voiding. At this time, he currently has a Morgan catheter in place that will remain in place until the patient sees Dr. Salinas again on 02/01/2019 for ureteral stent removal. At this time, the patient denies any depression or suicidal ideation. He states that he is ready to be discharged to inpatient rehabilitation, so he can eventually return home. On the day of discharge, the patient was noted to have a BUN of 19 with a creatinine of 1.8. DISCHARGE MEDICATIONS: 1. Ditropan 5 mg oral 3 times a day p.r.n. for bladder spasms. 2. Plavix 75 mg oral daily. 3. Namenda 10 mg oral twice a day. 4. Singular 10 mg oral daily. 5. Lipitor 80 mg oral at bedtime. 6. Omeprazole 20 mg oral daily. 7. Multivitamin 1 tab oral daily. 8. Aricept 10 mg oral at bedtime. 9. Flomax 0.4 mg oral daily. 10. Aspirin 81 mg oral daily. 11. Lisinopril 5 mg oral daily. 12. Trazodone 50 mg oral at bedtime. 13. Effexor 50 mg oral twice a day. DISCHARGE DIET: Low-sodium heart healthy diet. ACTIVITY: As tolerated. FOLLOWUP INSTRUCTIONS: The patient is scheduled to follow up with Dr. Salinas on 02/01/2019 to undergo ureteral stent removal. cc: Katey Sky MD MTDD
== END 2019-01-29 15:08 | DRG 660 ==
LOC: ED 13:58 → 3N 23:21 → SUATTDRO 23:21
PROVIDERS: ATTEND Internal Medicine